=== PATIENT | male | born 1985 | race Caucasian/White ===

== ENCOUNTER 2024-12-28 11:11 | Emergency (ER) | payer OTHER, SELFPAY ==
[2024-12-28 12:03] VITALS: BP 112/79; PULSE 55; RESP 14; TEMP 36.4; O2SAT 100
--- OUTSIDE RECORDS SUMMARY | 2024-12-28 13:08 | XMS_ITS | Clinical Summary ---
Author Organization [facility] Address [address] [place] [id number] Care Team Providers Care Rigger Apprentice Name Role Phone [facility] Primary Care Provider [phone] Allergies No known active allergies Medications cetirizine (ZyrTEC) 10 mg tablet 07/18/2021 Active diclofenac sodium (VOLTAREN) 1 % gel 08/21/2021 Active emollient cream 07/18/2021 Act maury montelukast (SINGULAIR) 10 mg tablet 07/18/2021 Active Active Problems No known active problems Social History Tobacco Use Types Packs/Day Years Used Date Smoking Tobacco: Some Days Cigarettes Smokeless Tobacco: Never Personal Safety Answer Date Recorded Getting School Help Needed Not on file 08/10 Sex and Gender Information Value Date Recorded Sex Assigned at Not on file Legal Sex Male 12:44 PM [employer] Gender Identity Not on file Sexual Orientation Not on file Obstetrics History Last Filed Vital Signs Vital Sign Reading Time Taken Comments Blood Pressure 123/76 09/22/2021 2:58 PM CDT Pulse 61 09/22/2021 2:58 PM CDT Temperature 36.6 C (97.8 F) 09/22/2021 2:56 PM CDT Respiratory Rate 18 09/22/2021 2:56 PM CDT Oxygen Saturation 100% 09/22/2021 2:58 PM CDT Inhaled Oxygen Concentration - - Weight 66.7 kg (147 lb) 09/22/2021 2:56 PM CDT Height 176.7 cm (5' 9.57) 09/22/2021 2:56 PM CD T Body Mass Index 21.36 09/22/2021 2:56 PM CDT Plan of Treatment Health Maintenance Due Date Last Done Comments Depression Screening 1983 Hepatitis C Screening 1983 DTaP/Tdap/Td Vaccine (1 - Tdap) 1994 Varicella Vaccines (1 of 2 - 13+ 2-dose series) 1996 Hepatitis B Screening 2001 Regular Well Visit/Exam 18-64 2001 Pneumococcal vaccine <65 (1 of 2 - PCV) 2002 Covid-19 Vaccine (3 - 2023-2 5 season) 2024 10/14/2020, 08/19/2020 Influenza Vaccine (Season Ended) 2025 04/21/2020 HPV Vaccines Aged Out No longer eligi ble based on patient's age to complete [place] [id number] [employer] [place] [id number] Care Teams Rigger Apprentice Relationship Specialty Start Date End Date [facility] [address] [place] [address] PCP - General 07/25/21
--- OUTSIDE RECORDS SUMMARY | 2024-12-28 13:08 | XMS_ITS | Referral Summary ---
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
--- OUTSIDE RECORDS SUMMARY | 2024-12-28 13:09 | XMS_ITS | Patient Health Record ---
Author Organization [facility]ly [facility] ([address]) Address [address] [facility] [address] [place] [address] Care Team Providers Care Film Processing Utility Worker Name Role Phone Amandeep Portillo Primary Care Provider Unavailab Meggan Marcus Unavailable [phone] Allergies No Known Allergies Reason For Referral No Information Medications Medication SIG (Take, Route, Frequency, Duration) Notes Start Date End Date Status FAMOTIDINE 40 mg 1 tab(s) orally 30 min prior to allergy shots; Duration: 90 days Active EPIPEN 2-LUCIO 0.3 mg as directed intramuscularly once; Duration: 30 day(s) Active ZYRTEC 10 mg 1 tab(s) orally once a day; Duration: 90 days Active CETIRIZINE HYDROCHLORIDE 10 mg 1 tab(s) orally BID, PRN; Duration: 90 days Active FLONASE 0.05 mg/inh 2 spray(s) intranasally (avoid nasal septum) once a day; Duration: 90 days Active PEPCID 40 mg 1 tab(s) orally BID; Duration: 90 days Active SINGULAIR 10 mg 1 tab(s) orally once a day; Duration: 90 days Active Famotidine 40 MG 1 tab(s) orally 30 min prior to allergy shots; Duration: 90 days Active ZyrTEC Allergy 10 MG 1 tab(s) orally onc e a day; Duration: 90 days Active EpiPen 2-Lucio 0.3 MG/0.3ML as directed intramuscularly once; Duration: 30 day(s) Active Flonase Allergy Relief 50 MCG/ACT 2 spray(s) intranasally (avoid nasal septum) once a day; Duration: 90 days Active Cetirizine HCl 10 MG 1 tab(s) orally BID , PRN; Duration: 90 days Active Singulair 10 MG 1 tab(s) orally once a day; Duration: 90 days Active VANICREAM - 1 kori applied topically once a day; Duration: 30 days Active Pepcid 40 MG 1 tab(s) orally BID; Duration: 90 days Active VANICREAM MOISTURIZING CREAM N/A NECESSARY APPLY TO EXTERNAL SURFACES OFTEN NEEDED TO FACE, HANDS, FEET OR BODY FOR DAILY USE; Duration: 30 DAY(S) *Please review for potential replacement for e-prescription and drug interaction check* 07/11/2022 Active Vanicream - 1 kori applied topically once a day; Duration: 30 days Active Immunizations Vaccine Route Administration Date Status Comme nts Covid 19 (Pfizer) Unknown 08/19/2020 Administered Covid 19 (Pfizer) Unknown 10/14/2020 Administered Flucelvax Unknown 04/01/2019 Refused NOC Flucelevax Quadrivalent Unknown 04/21/2020 Administ ered Social History Tobacco Use: Social History Observation Description Date Details (start date - stop date) Current Smoker NA - NA Smoking Smart Form: Question Answer Notes Are you a: current smoker How often do you smoking Cigarettes? every day Problems Problem Type SNOMED Code ICD Code Onset Dates Problem Status W/U Status Risk Notes Problem Eruption of skin (926341405) Rash and other nonspecific skin eruption (R21) Active confirmed Problem Chronic allergic conjunctivitis (78597065) Other chronic allergic conjunctivitis (H10.45) Active confirmed Problem Allergic rhinitis caused by pollen (disorder) (46156240) Allergic rhinitis due to pollen (J30.1) Active confirmed Problem Allergic rhinitis (97209904) Other allergic rhinitis (J30.89) Active confirmed Problem Dizziness and giddiness (369962732) Dizziness and giddiness (R42) Active confirmed Problem Allergic rhinitis caused by pollen (disorder) (64525327) Allergic rhinitis due to pollen (J30.1) Active confirmed Problem Allergic rhinitis caused by animal hair and dander (927802936255224) Allergic rhinitis due to animal (cat) (dog) hair and dander (J30.81) Active confirmed Problem Allergic rhinitis (56462326) Other allergic rhinitis (J30.89) Active confirmed Problem Eruption of skin (553413961) Rash and other nonspecific skin eruption (R21) Active confirmed Problem Idiopathic urticaria (70198293) Idiopathic urticaria (L50.1) Active confirmed Problem Abnormal immunology finding (848390174) Other specified abnormal immunological findings in serum (R76.8) Active confirmed Problem 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 Problem Impacted cerumen (46226497) Impacted cerumen, right ear (H61.21) Active confirmed Plan Of Treatment Pending Test Test Name Order Date TRYPTASE 12/19/2020 Tryptase Copy Number 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
--- OUTSIDE RECORDS SUMMARY | 2024-12-28 13:09 | XMS_ITS | Continuity of Care Document ---
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 It does not include entries that were removed or entered in error. Problem Status Onset Date Problem Type Date of Resolution Comments Source Chronic low back pain Active Condition [facility] Chronic neck pain Active Condition [facility] Depression Active Condition [facility] Exposure to potentially hazardous substance (SCT [id number]) Active Condition Sep 24 4 Entered By: CAL MORE Comment: Entered automatically through [employer] Problem List documentation program [facility] Pain of bilateral hands Active Condition [facility] Pain of right wrist Active Condition [facility] Prepatellar bursitis Active Condition [facility] Tobacco use Active Condition [facility] Vitamin D deficiency Active Condition [facility] Vertebrogenic low back pain Active Condition [facility] 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 Condition [facility] Encounter for preprocedural laboratory examination Active Condition [facility] Muscle spasm of back Active Condition [facility] Other spondylosis, cervical region Active Condition [facility] Cervicalgia Active Condition [facility] Segmental and somatic dysfunction of cervical region Active Condition [facility] Segmental and somatic dysfunction of thoracic region Active Condition [facility] Segmental and somatic dysfunction of lumbar region Active Condition [facility] Low back pain Active Condition [facility] Urticaria, unspecified Active Condition [facility] NORMAL EXAMINATION Inactive Condition [facility] INHIBITED SEXUAL EXCITEMENT Active Condition [facility] VITREOUS FLOATERS Active Condition [facility] VARICOSE VEINS Active Condition [facility] visit 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: 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 Inactive Condition [facility] PREMATURE EJACULATION Active Condition [facility] drowsiness [Sx] Active Condition [facility] visit for: issue medical certificate Inactive Condition [facility] CERVICAL SPONDYLOSIS Active Condition [facility] tingling (paresthesia) Active Condition [facility] 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 [facility] FACET SYNDROME Active Condition [facility] SEGMENTAL DYSFUNCTION OF CERVICAL REGION Active Condition [facility] SEGMENTAL DYSFUNCTION OF THORACIC REGION Active Condition [facility]D CERVICALGIA Active Condition DoD ACUTE LYMPHADENITIS INGUINAL Inactive Condition [facility] CELLULITIS OF THE LEFT BUTTOCK Inactive Condition [facility] visit for: refer patient without exam or treatment Inactive Condition [facility] Inquiry And Counseling: Parent - Child Problem Inactive Condition [facility] visit for: administrative purpose Inactive Condition [facility] Inquiry And Counseling: Concern About Behavior Of Child Inactive Condition DoD BACKACHE Active Condition [facility] SKIN ABSCESS OF THE RIGHT THIGH Inactive Condition [facility] Administrative Evaluation Services Inactive Condition DoD TONGUE PAPILLAE HYPERTROPHY Active Condition [facility] FURUNCULOSIS Inactive Condition DoD NONALLOPATHIC LESIONS THORACIC Active Condition DoD BURSITIS PREPATELLAR SEPTIC Active Condition Do[facility] SKIN ABSCESS Inactive Condition Do[facility] Laboratory Studies Inactive Condition DoD neck stiffness Inactive Condition DoD testicular pain Inactive Condition DoD ANEMIA Active Condition DoD Patient Education - Medication Inactive Condition DoD NICOTINE DEPENDENCE Active Condition DoD EPIDERMAL INCLUSION CYST Inactive Condition DoD feeling tired or poorly Inactive Condition DoD CELLULITIS Inactive Condition [facility] visit for: issue repeat prescription Inactive Condition DoD Aftercare Following Surgery Of Genitourinary System Inactive Condition [facility] visit for: sterilization Inactive Condition [facility] Inquiry And Counseling: Contraceptive Practices Inactive Condition [facility] visit for: vasectomy status Inactive Condition Counseled onalternatives as he is young, then also as above on procedure. If he decised to go ahead with procedure after this counseling, I feel comfortable performing it. He will need to call back soon to schedule. If I am no longer available for procedures by the time he calls back, we may check with other providers in this clinic, or refer to urology DoD visit for: screening exam lipoid disorders Inactive Condition see [facility] note DoD visit for: services physical Inactive Condition Records reviewed. No DLCs and is Fully WWQ DoD visit for: administrative purpose Inactive Condition appt as noted below DoD SUBUNGUAL HEMATOMA LEFT HAND INDEX FINGER Inactive Condition Healing normally, no sign of infection. Self-care, callback criteria reviewed. DoD RHINITIS Inactive Condition Sinuses NT TP, nasal mucosa red/swollen, no polyps noted. ENT exam o/w (-). Avoid typical triggers, call/RTC prn not gradually improved. DoD ACNE Inactive Condition Type I acn e at face, no cysts/nodules/sc arring. Avoid xs picking/scrubbin g, call/RTC prn not gradually improved over next few mos. DoD visit for: issue repeat prescription for medication Inactive Condition appt per dr Castano [facility] /RSJANICE MARES [id number]@1320 ROUT/20 PENDINGArrive 15 min early DoD CARBUNCLE ON THE LEFT FOREARM Inactive Condition Refer above for details. DoD CARBUNCLE ON THE RIGHT KNEE Inactive Condition Presumptive MRS A infection. Adjust antibiotic dose as directed and start Motrin prn pain. Recommend qid warm compresses. Monitor and call/rtc if persists/worse. Keep clean and dry. May require I&D if persists. If MRSA +, will start decolonization 5 days after wounds heal w/ Bactroban instilled in nostril bid f 5 days and daily Hibiclens scrub. Wash clothes and sheets daily and wipe down surfaces in common areas. (H) [phone] DoD OPEN WOUND Inactive Condition persisten t open wound left forearm but no palpable abscess or fluctuance; lesion to right knee that also has no palpable fluctuance but suspect may develop into cutaneous abscess; unsure why pt has persistent open wound but will cover with septra ds x 10d; pt already has pcp f/u in 2d at which point wound check can occur and persistent allergy issues can be addressed; rx septra ds, ibuprofen, and tylenol DoD Color Discrimination Difficulty Green Color Defect Bilateral Inactive Condition mild red-green color deficiency DoD Diagnosis: ICD-10-CM Z63.0 Problems in relationship with spouse or partner Active Diagnosis [facility] Diagnosis: ICD-10-CM M25.531 Pain in right wrist Active Diagnosis [facility] Diagnosis: ICD-10-CM M54.2 Cervicalgia Active Diagnosis [facility] Diagnosis: ICD-10-CM M54.50 Low back pain, unspecified Active Diagnosis [facility] Diagnosis: ICD-10-CM F32.A Depression, unspecified Active Diagnosis [facility] Diagnosis: ICD-10-CM F43.20 Adjustment disorder, unspecified Active Diagnosis [facility] Diagnosis: ICD-10-CM F43.21 Adjustment disorder with depressed mood Active Diagnosis [facility] Diagnosis: ICD-10-CM M25.511 Pain in right shoulder Active Diagnosis [facility] Diagnosis: ICD-10-CM F43.23 Adjustment disorder with mixed anxiety and depressed mood Active Diagnosis [facility] Diagnosis: ICD-10-CM F33.0 Major depressive disorder, recurrent, mild Active Diagnosis [facility] Diagnosis: ICD-10-CM Z71.89 Other specified counseling Active Diagnosis [facility] Medications Combined list of outpatient medications from Department of Defense and Veterans Affairs facilities.Medications provided include 1) outpatient medications from the last 15 months, and 2) patient-reported medications. Medication Details Route Status Patient Instructions Prescription Expires Prescription Number Last Dispense Date Ordering Provider Order Date Order Qty Source BUPROPION (WELLBUTRIN XL) 24HR TAB,SA (EXTENDED RELEASE) TAKE 150MG BY MOUTH ONCE A DAY ORAL ACTIVE BRIAN,Z AHIDA 2023 [facility] buPROPion 150 mg/24 hours (XL) oral tablet, extended release See Instruct ions, TAKE 1 TABLET BY MOUTH EVERY 24 HOURS, # 90 tab(s), 0 total refill(s ), [facility], [id number] Ordered 2024 90.0 [facility]55C[facility] buPROPion 150 mg/24 hours (XL) oral tablet, extended release 1 tab(s), Oral, every 24 hr, # 90 tab(s), 3 total refill(s ), [facility], Pharmacy : [id number] Oral (given by mouth) Complet ed 08/04/20242024 90.0 0055C[facility] buPROPion 150 mg/24 hours (XL) oral tablet, extended release See Instruct ions, TAKE 1 TABLET BY MOUTH EVERY 24 HOURS, # 90 tab(s), 0 total refill(s ), [facility], Pharmacy : [facility] #[id number] Complet ed 11/05/20242024 90.0 0055C[facility] buPROPion XL 150 mg/24 hour tablet 150 mg, See dose instruct ions in comments , # 90 EA, 1 total refill(s ), Acute Complet ed 08/28/2023 3 2023 90.0 Ambulat ory Pharmac y CHOLECALCIF SOPHIA 50MCG (2,000UNIT) TAB TAKE ONE TABLET BY MOUTH ONCE A DAY FOR VITAMIN D DEFICIEN CY ORAL ACTIVE 07/21/2025 [id number] BRIAN,Z AHIDA 2024 100 [facility] ERGOCALCIFE ROL 1,250MCG (50,000UNIT ) CAP TAKE ONE CAPSULE BY MOUTH EVERY WEEK FOR VITAMIN D DEFICIEN CY ORAL 10/19/2024 [id number] 5 BRIAN,Z AHIDA 2024 12 [facility] escitalopra m 20 mg oral tablet TAKE ONE TABLET BY MOUTH DAILY, # 90 EA, 1 total refill(s ), Acute Complet ed 08/28/2023 3 2023 90.0 Ambulat ory Pharmac y meloxicam 15 mg oral tablet 1 tab(s), Oral, Daily, # 30 tab(s), 0 total refill(s ), [facility], Pharmacy : [facility] Oral (given by mouth) Complet ed 02/03/20242023 30.0 0055C-[facility] Sh[facility] meloxicam 15 mg oral tablet See Instruct ions, TAKE 1 TABLET BY MOUTH DAILY, # 30 tab(s), 0 total refill(s ), [facility], Pharmacy : [facility] #[id number] Complet ed 03/09/20242023 30.0 0055C[facility] meloxicam 15 mg oral tablet See Instruct ions, TAKE 1 TABLET BY MOUTH DAILY, # 30 tab(s), 0 total refill(s ), [facility], Pharmacy : [facility] #[id number] Ordered 2023 30.0 0055C-3 [facility] Shiva meloxicam 15 mg oral tablet See Instruct ions, TAKE 1 TABLET BY MOUTH DAILY, # 30 tab(s), 0 total refill(s ), [facility], Pharmacy : [facility] #[id number] Complet ed 05/11/20242023 30.0 0055C-[facility] meloxicam 15 mg oral tablet 1 tab(s), Oral, Daily, # 30 tab(s), 0 total refill(s ), [id number] Oral (given by mouth) Discont inued 12/26/20232023 30.0 [facility]55C[facility] MELOXICAM 15MG TAB TAKE ONE TABLET BY MOUTH ONCE A DAY FOR PAIN WITH FOOD ORAL ACTIVE 10/30/2025 [id number] 5 BRIAN,Z AHIDA 2024 30 [facility] Allergies, Adverse Reactions, Alerts Combined list of allergies from Department of Defense and Veterans Affairs facilities. It does not include entries that were removed or entered in error. Substance Category Reaction Severity Reaction type Status Date Reported Comments Source No Known Allergies Drug allergy (disorder) active 08/31/2016 [place] Immunizations Combined list of available immunizations from the Department of Defense and Veterans Affairs facilities. Immunization Series Date Given Administered By Site Reaction Lot Number CVX Code [facility] Status Comments Source COVID-19 (PFIZER), MRNA, LNP-S, PF, TACOS-SUCROSE, 30 MCG/0.3 ML (AGES 12+ YEARS) 2024 MEENU ASH LEFT DELTO ID [id number] complet ed [facility] AT [facility] INFLUENZA, SPLIT VIRUS, TRIVALENT, PF 2024 MIHIRMEENU LEFT DELTO ID [id number] complet ed [facility]MIN[facility]E [facility] AT [facility] influenza, injectable, quadrivalent- pf 2020 [id number] 150 GlaxoSmithKli ne complet ed influenza , injectabl e, quadrival ent-pf 03/13/21 Given Ambulat ory Pharmac y Influenza, injectable, quadrivalent, preservative free 9 2020 [id number] 150 SmithKline (SKB) complet ed Influenza , injectabl e, quadrival ent, preservat maury free [facility] COVID Vaccine Pfizer 2020 [id number] PFIZER complet ed COVID Vaccine Pfizer 10/14/20 Given Ambulat ory Pharmac y SARS-COV-2 (COVID-19) vaccine, mRNA, spike protein, LNP, preservative free, 30 mcg/0.3mL dose 2 05/07/ 2021 [id number] Pfizer, Inc (PFR) complet ed SARS-COV- 2 (COVID-19 ) vaccine, mRNA, spike protein, LNP, preservat maury free, 30 mcg/0.3mL dose DoD COVID Vaccine Pfizer 2020 [id number] PFIZER complet ed COVID Vaccine [facility] 08/19/20 Given Ambulat ory Pharmac y SARS-COV-2 (COVID-19) vaccine, mRNA, spike protein, LNP, preservative free, 30 mcg/0.3mL dose 1 2020 [id number] 208 Pfizer, Inc (PFR) complet ed SARS-COV- 2 (COVID-19 ) vaccine, mRNA, spike protein, LNP, preservat maury free, 30 mcg/0.3mL dose DoD influenza, injectable, quadrivalent- pf 2019 [id number] 150 Seqirus complet ed influenza , injectabl e, quadrival ent-pf 04/29/20 Given Ambulat ory Pharmac y Influenza, injectable, quadrivalent, preservative free 1 2019 [id number] 082 150 Seqirus (SEQ) complet ed Influenza , injectabl e, quadrival ent, preservat maury free DoD influenza, injectable, quadrivalent- pf 2018 [id number] 150 Seqirus complet ed influenza , injectabl e, quadrival ent-pf 05/22/19 Given Ambulat ory Pharmac y Influenza, injectable, quadrivalent, preservative free 0 2018 [id number] 150 Seqirus (SEQ) complet ed Influenza , injectabl e, quadrival ent, preservat maury free DoD influenza, injectable, quadrivalent- pf 2017 [id number] 150 GlaxoSmithKli ne complet ed influenza , injectabl e, quadrival ent-pf 03/31/18 Given Ambulat ory Pharmac y Influenza, injectable, quadrivalent, preservative free 16 2017 [id number] 150 [employer] (SKB) complet ed Influenza , injectabl e, quadrival ent, preservat maury free [facility] influenza virus vaccine, inactivated 2016 [id number] Seqirus complet ed influenza virus vaccine, inactivat ed 03/13/17 Given Ambulat ory Pharmac y Influenza, injectable, Madin Linden Canine Kidney, quadrivalent with preservative 15 2016 [id number] 186 Seqirus (SEQ) comple t ed Influenza , injectabl e, Madin Linden Canine Kidney, quadrival ent with preservat maury DoD influenza, injectable, quadrivalent- pf 2015 [id number] 150 GlaxoSmithKli ne complet ed influenza , injectabl e, quadrival ent-pf 04/13/16 Given Ambulat ory Pharmac y Influenza, injectable, quadrivalent, preservative free 14 2015 [id number] 150 SmithKline (SKB) complet ed Influenza , injectabl e, quadrival ent, preservat maury free DoD Swazi Encephalitis IM 2015 [id number] 134 Valneva complet ed Swazi Encephali tis IM 10/04/15 Given Ambulat ory Pharmac y Swazi Encephalitis vaccine for intramuscular administratio n 3 2015 [id number] 134 Intercell Biomedical (INT) complet ed Swazi Encephali tis vaccine for intramusc ular administr ation DoD influenza, live, intranasal,qu adrivalent 2014 [id number] 149 [employer] Inc comple t ed influenza , live, intranasa l,quadriv alent 03/16/15 Given Ambulat ory Pharmac y influenza, live, intranasal, quadrivalent 13 2014 [id number] 149 Factor.io, Inc. (MED) complet ed influenza , live, intranasa l, quadrival ent DoD Swazi Encephalitis IM 2014 [id number] 134 Valneva complet ed Swazi Encephali tis IM 08/25/14 Given Ambulat ory Pharmac y Swazi Encephalitis vaccine for intramuscular administratio n 2 2014 [id number] 6E 134 [employer] (INT) complet ed Swazi Encephali tis vaccine for intramusc ular administr ation DoD Swazi Encephalitis IM 2014 [id number] 4E 134 Valneva complet ed Swazi Encephali tis IM 07/27/14 Given Ambulat ory Pharmac y Swazi Encephalitis vaccine for intramuscular administratio n 1 2014 [id number] 4E 134 [employer] (INT) complet ed Swazi Encephali tis vaccine for intramusc ular administr ation DoD influenza, live, intranasal,qu adrivalent 2013 [id number] 149 Medimmune Inc comple t ed influenza , live, intranasa l,quadriv alent 04/14/14 Given Ambulat ory Pharmac y influenza, live, intranasal, quadrivalent 12 2013 [id number] 149 Factor.io, Inc. (MED) complet ed influenza , live, intranasa l, quadrival ent DoD vaccinia (smallpox) vaccine 2013 VV04-00 3A 75 Med fusion [facility] complet ed vaccinia (smallpox ) vaccine 10/13/13 Given Ambulat ory Pharmac y vaccinia (smallpox) vaccine 1 2013 VV04-00 3A 75 [facility] complet ed vaccinia (smallpox ) vaccine DoD anthrax vaccine 2013 [id number] 24 Emergent Biosolutions complet ed anthrax vaccine 10/09/13 Given Ambulat ory Pharmac y anthrax vaccine 3 2013 [id number] 24 [employer] [place] (MIP) complet ed anthrax vaccine DoD anthrax vaccine 2012 [id number] 24 [employer] complet ed anthrax vaccine 03/27/13 Given Ambulat ory Pharmac y anthrax vaccine 2 2012 [id number] 24 [employer] Mara (MIP) complet ed anthrax vaccine DoD anthrax vaccine 2012 [id number] 24 [employer] complet ed anthrax vaccine 02/26/13 Given Ambulat ory Pharmac y influenza, live, intranasal,qu adrivalent 2012 [id number] 149 TAPQUADune Inc comple t ed influenza , live, intranasa l,quadriv alent 02/26/13 Given Ambulat ory Pharmac y typhoid Vi capsular polysaccharid e vac 2012 [id number] 101 sanofi pasteur complet ed typhoid Vi capsular polysacch aride vac 02/26/13 Given Ambulat ory Pharmac y anthrax vaccine 1 2012 [id number] 24 [employer] Mara (MIP) complet ed anthrax vaccine DoD typhoid Vi capsular polysaccharid e vaccine 1 2012 [id number] 101 Sanofi Pasteur (PMC) complet ed typhoid Vi capsular polysacch aride vaccine DoD influenza, live, intranasal, quadrivalent 11 2012 [id number] 149 MedImmune, Inc. (MED) complet ed influenza , live, intranasa l, quadrival ent DoD tetanus, diphtheria, acellular pertu is 2011 [id number] 115 sanofi [facility] complet ed tetanus, diphtheri a, acellular pertussis 02/15/12 Given Ambulat ory Pharmac y influenza virus vaccine, live 2011 [id number] 111 [facility] t ed influenza virus vaccine, live 02/15/12 Given Ambulat ory Pharmac y influenza virus vaccine, live, attenuated, for intranasal use 10 2011 [id number] 111 Factor.io, Inc. (MED) complet ed influenza virus vaccine, live, attenuate d, for intranasa l use DoD tetanus toxoid, reduced diphtheria toxoid, and acellular pertu is vaccine, adsorbed 0 2011 [id number] 115 [facility] ([facility]) complet ed tetanus toxoid, reduced diphtheri a toxoid, and acellular pertussis vaccine, adsorbed DoD influenza virus vaccine, live 2010 [id number] 111 [facility] t ed influenza virus vaccine, live 02/26/11 Given Ambulat ory Pharmac y influenza virus vaccine, live, attenuated, for intranasal use 2010 [id number] 111 Factor.io, Inc. (MED) complet ed influenza virus vaccine, live, attenuate d, for intranasa l use DoD Novel influenza-H1N 1-09, injectable 2008 [id number] 127 Novartis Pharmaceutica complet ed Novel influenza -C8K2-18, injectabl e 05/20/09 Given Ambulat ory Pharmac y Novel influenza-H1N 1-09, injectable 1 2008 [id number] [id number] 127 Novartis Pharmaceutica Edi. (NOV) complet ed Novel influenza -S1I1-65, injectabl e DoD influenza virus vaccine, live 2008 [id number] 111 [facility] t ed influenza virus vaccine, live 04/08/09 Given Ambulat ory Pharmac y influenza virus vaccine, live, attenuated, for intranasal use 1 2008 [id number] 111 Factor.io, Inc. (MED) complet ed influenza virus vaccine, live, attenuate d, for intranasa l use DoD influenza virus vaccine, live 2007 [id number] 111 [facility] comple t ed influenza virus vaccine, live 05/17/08 Given Ambulat ory Pharmac y influenza virus vaccine, live, attenuated, for intranasal use 1 2007 [id number] 111 Factor.io, Inc. (MED) complet ed influenza virus vaccine, live, attenuate d, for intranasa l use DoD influenza virus vaccine, live 2006 [id number] 111 [employer] comple t ed influenza virus vaccine, live 04/01/07 Given Ambulat ory Pharmac y influenza virus vaccine, live, attenuated, for intranasal use 1 2006 [id number] 111 Factor.io, Inc. (MED) complet ed influenza virus vaccine, live, attenuate d, for intranasa l use DoD influenza virus vaccine,split 2005 [id number] 15 sanofi pasteur complet ed influenza virus vaccine,s plit 05/15/06 Given Ambulat ory Pharmac y influenza virus vaccine, split virus (incl. purified surface antigen)-reti red CODE 1 2005 [id number] 15 Sanofi Pasteur ([facility]) complet ed influenza virus vaccine, split virus (incl. purified surface antigen)- retired CODE [facility] tuberculin purified protein derivative 2004 zzLef t Arm [id number] 96 Unknown complet ed Patient Tolerance : Negative Ambulat ory Pharmac y influenza virus vaccine,split 2004 [id number] 15 sanofi pasteur complet ed influenza virus vaccine,s plit 04/23/05 Given Ambulat ory Pharmac y influenza virus vaccine, split virus (incl. purified surface antigen)-reti red CODE 1 2004 [id number] 15 Sanofi Pasteur ([facility]) complet ed influenza virus vaccine, split virus (incl. purified surface antigen)- retired CODE [facility] tuberculin skin test; purified protein derivative solution, intradermal 1 2004 Unknown, Provider [id number] 96 Other (OTH) complet ed tuberculi n skin test; purified protein derivativ e solution, intraderm al DoD influenza virus vaccine,split 2003 [id number] 15 sanofi pasteur complet ed influenza virus vaccine,s plit 05/10/04 Given Ambulat ory Pharmac y influenza virus vaccine, split virus (incl. purified surface antigen)-reti red CODE 0 2003 [id number] 15 Sanofi Pasteur ([facility]) complet ed influenza virus vaccine, split virus (incl. purified surface antigen)- retired CODE [facility] tuberculin purified protein derivative 2003 zzLef t Arm [id number] 96 [facility] complet ed Patient Tolerance : Negative Ambulat ory Pharmac y tuberculin skin test; purified protein derivative solution, intradermal 1 2003 Unknown, Provider [id number] [facility] complet ed tuberculi n skin test; purified protein derivativ e solution, intraderm al DoD influenza virus vaccine, whole virus 2002 [id number] 16 Novartis Pharmaceutica ls complet ed influenza virus vaccine, whole virus 05/17/03 Given Ambulat ory Pharmac y influenza virus vaccine, whole virus 0 2002 [id number] 16 [employer] Pharm[employer] ls (PWJ) complet ed influenza virus vaccine, whole virus DoD hepatitis A-hepatitis B vaccine 2002 [id number] 4 104 GlaxoSmithKli ne complet ed hepatitis A-hepatit is B vaccine 08/26/02 Given Ambulat ory Pharmac y hepatitis A and hepatitis B vaccine 3 2002 [id number] 4 104 SmithKline (SKB) complet ed hepatitis A and hepatitis B vaccine DoD influenza virus vaccine, whole virus 2001 [id number] 16 sanofi pasteur complet ed influenza virus vaccine, whole virus 03/12/02 Given Ambulat ory Pharmac y influenza virus vaccine, whole virus 0 2001 [id number] 16 Sanofi Pasteur ([facility]) complet ed influenza virus vaccine, whole virus DoD hepatitis A-hepatitis B vaccine 2001 [id number] 6 104 GlaxoSmithKli ne complet ed hepatitis A-hepatit is B vaccine 03/07/02 Given Ambulat ory Pharmac y hepatitis A and hepatitis B vaccine 2 2001 [id number] 6 104 [employer] (SKB) complet ed hepatitis A and hepatitis B vaccine DoD hepatitis A-hepatitis B vaccine 2001 [id number] 6 104 GlaxoSmithK[employer] ne complet ed hepatitis A-hepatit is B vaccine 02/06/02 Given Ambulat ory Pharmac y measles, mumps and rubella virus vaccine 0 2001 03 () Not Given measles, mumps and rubella virus vaccine DoD varicella virus vaccine 1 2001 21 () Not Given varicella virus vaccine DoD hepatitis A and hepatitis B vaccine 1 2001 [id number] 6 104 [employer] (SKB) complet ed hepatitis A and hepatitis B vaccine DoD tuberculin purified protein derivative 2001 zzLef t Arm [id number] 96 sanofi pasteur complet ed Patient Tolerance : Negative Ambulat ory Pharmac y meningococcal polysaccharid e (MPSV4) 2001 [id number] sanofi pasteur complet ed meningoco ccal polysacch aride (MPSV4) 01/30/02 Given Ambulat ory Pharmac y tetanus-dipht h toxoids (Td) adult/adol 2001 [id number] 09 sanofi pasteur complet ed tetanus-d iphth toxoids (Td) adult/ado l 01/30/02 Given Ambulat ory Pharmac y poliovirus vaccine, inactivated 2001 [id number] 10 sanofi pasteur complet ed polioviru s vaccine, inactivat ed 01/30/02 Given Ambulat ory Pharmac y tetanus and diphtheria toxoids, adsorbed, preservative free, for adult use (2 Lf of tetanus toxoid and 2 Lf of diphtheria toxoid) 0 2001 [id number] 09 Sanofi Pasteur (PMC) complet ed tetanus and diphtheri a toxoids, adsorbed, preservat maury free, for adult use (2 Lf of tetanus toxoid and 2 Lf of diphtheri a toxoid) DoD poliovirus vaccine, inactivated 0 2001 [id number] 10 Sanofi Pasteur (PMC) complet ed polioviru s vaccine, inactivat ed DoD meningococcal polysaccharid e vaccine (MPSV4) 0 2001 [id number] 32 Sanofi Pasteur (PMC) complet ed meningoco ccal polysacch aride vaccine (MPSV4) DoD tuberculin skin test; purified protein derivative solution, intradermal 1 2001 Unknown, Provider [id number] 96 Sanofi Pasteur (PMC) complet ed tuberculi n skin test; purified protein derivativ e solution, intraderm al DoD Results Combined list of recent chemistry, hematology and other laboratory results from Department of Defense and [facility], ranging from 15 months to all on record, depending upon the facility. Order Name Results Value Reference Range Date Interpretation Specimen Comments Source URINALYSI S (STL-PB) COLOR OF URINE Light-Ye llow 07/20 Specimen Type: URINE No comment entered. Ordering Provider: BEV TORRES Report Released Date/Time: Jul 20, 2024 03:42 PM Reporting Lab: [facility] [place] [address] Performing Lab: [facility] DIVISION URINALYSI S (STL-PB) BILIRUBIN. TOTAL [PRESENCE] IN URINE BY TEST STRIP Negative mg/dL 07/20 Specimen Type: URINE No comment entered. Ordering Provider: BEV TORRES Report Released Date/Time: Jul 20, 2024 03:42 PM Reporting Lab: [facility] [place] [address] Performing Lab: [facility] DIVISION URINALYSI S (STL-PB) PH OF URINE BY TEST STRIP 7.0 5.0 - 8.0 07/20 Specimen Type: URINE No comment entered. Ordering Provider: BEV TORRES Report Released Date/Time: Jul 20, 2024 03:42 PM Reporting Lab: [facility] [place] [address] Performing Lab: [facility] DIVISION URINALYSI S (STL-PB) APPEARANCE OF URINE Clear 07/20 Specimen Type: URINE No comment entered. Ordering Provider: BEV TORERS Report Released Date/Time: Jul 20, 2024 03:42 PM Reporting Lab: [facility] [place] [address] Performing Lab: [facility] DIVISION URINALYSI S (STL-PB) NITRITE [PRESENCE] IN URINE BY TEST STRIP Negative mg/dL 07/20 Specimen Type: URINE No comment entered. Ordering Provider: BEV TORRES Report Released Date/Time: Jul 20, 2024 03:42 PM Reporting Lab: [facility] [place] [address] Performing Lab: [facility] DIVISION URINALYSI S (STL-PB) GLUCOSE [MASS/VOLU ME] IN URINE BY TEST STRIP Normalmg /dL 07/20 Specimen Type: URINE No comment entered. Ordering Provider: BEV TORRES Report Released Date/Time: Jul 20, 2024 03:42 PM Reporting Lab: [facility] [place] [address] Performing Lab: [facility] DIVISION URINALYSI S (STL-PB) PROTEIN [MASS/VOLU ME] IN URINE BY TEST STRIP 10 mg/dL 07/20 H Specimen Type: URINE No comment entered. Ordering Provider: BEV TORRES Report Released Date/Time: Jul 20, 2024 03:42 PM Reporting Lab: [facility] [place] [address] Performing Lab: [facility] DIVISION URINALYSI S (STL-PB) URN.UROBIL INOGEN Normalmg /dL 07/20 Specimen Type: URINE No comment entered. Ordering Provider: BEV TORRES Report Released Date/Time: Jul 20, 2024 03:42 PM Reporting Lab: [facility] [place] [address] Performing Lab: [facility] DIVISION URINALYSI S (STL-PB) HEMOGLOBIN [MASS/VOLU ME] IN URINE BY TEST STRIP Negative mg/dL 07/20 Specimen Type: URINE No comment entered. Ordering Provider: BEV TORRES Report Released Date/Time: Jul 20, 2024 03:42 PM Reporting Lab: [facility] [place] [address] Performing Lab: [facility] DIVISION URINALYSI S (STL-PB) KETONES [MASS/VOLU ME] IN URINE BY TEST STRIP Negative mg/dL 07/20 Specimen Type: URINE No comment entered. Ordering Provider: BEV TORRES Report Released Date/Time: Jul 20, 2024 03:42 PM Reporting Lab: [facility] [place] [address] Performing Lab: [facility] DIVISION URINALYSI S (STL-PB) URN.LEUK.E ST. Negative mg/dL 07/20 Specimen Type: URINE No comment entered. Ordering Provider: BEV TORRES Report Released Date/Time: Jul 20, 2024 03:42 PM Reporting Lab: [facility] [place] [address] Performing Lab: [facility] DIVISION URINALYSI S (STL-PB) SPECIFIC GRAVITY OF URINE 1.023 07/20 Specimen Type: URINE No comment entered. Ordering Provider: BEV TORRES Report Released Date/Time: Jul 20, 2024 03:42 PM Reporting Lab: [facility] [place] [address] Performing Lab: [facility] DIVISION LIPID PANEL (STL) CHOLESTERO L [MASS/VOLU ME] IN SERUM OR PLASMA 219 mg/dL 0 - 200 07/20 H Specimen Type: PLASMA Comment: No hemolysis noted. Ordering Provider: BEV TORRES Report Released Date/Time: Jul 20, 2024 03:42 PM Reporting Lab: [facility] [place] [address] Performing Lab: [facility] LIPID PANEL (STL) TRIGLYCERI DE [MASS/VOLU ME] IN SERUM OR PLASMA 66 mg/dL 0 - 150 07/20 Specimen Type: PLASMA Comment: No hemolysis noted. Ordering Provider: BEV TORRES Report Released Date/Time: Jul 20, 2024 03:42 PM Reporting Lab: [facility] [place] [address] Performing Lab: [facility] LIPID PANEL (STL) CHOLESTERO L IN LDL [MASS/VOLU ME] IN SERUM OR PLASMA BY TRAM Soriano 137 mg/dL 07/20 Specimen Type: PLASMA Comment: No hemolysis noted. Ordering Provider: BEV TORRES Report Released Date/Time: Jul 20, 2024 03:42 PM Reporting Lab: [facility] [place] [address] Performing Lab: [facility] LIPID PANEL (STL) CHOLESTERO L IN HDL [MASS/VOLU ME] IN SERUM OR PLASMA 69 mg/dL 40 07/20 Specimen Type: PLASMA Comment: No hemolysis noted. Ordering Provider: BEV TORRES Report Released Date/Time: Jul 20, 2024 03:42 PM Reporting Lab: [facility] [place] [address] Performing Lab: [facility] [place] [id number] DIVISION COMPREHEN SIVE METABOLIC PANEL CREATININE [MASS/VOLU ME] IN SERUM OR PLASMA 0.83 mg/dL 0.70 - 1.30 07/20 Specimen Type: PLASMA Comment: No hemolysis noted. Ordering Provider: BEV TORRES Report Released Date/Time: Jul 20, 2024 03:42 PM Reporting Lab: [facility] [place] [address] Performing Lab: [facility] DIVISION COMPREHEN SIVE METABOLIC PANEL UREA NITROGEN [MASS/VOLU ME] IN SERUM OR PLASMA 13.7 mg/dL 9.0 - 25.0 07/20 Specimen Type: PLASMA Comment: No hemolysis noted. Ordering Provider: BEV TORRES Report Released Date/Time: Jul 20, 2024 03:42 PM Reporting Lab: [facility] [place] [address] Performing Lab: [facility] COMPREHEN SIVE METABOLIC PANEL GLUCOSE [MASS/VOLU ME] IN SERUM OR PLASMA 88 mg/dL 72 - 99 07/20 Specimen Type: PLASMA Comment: No hemolysis noted. Ordering Provider: BEV TORRES Report Released Date/Time: Jul 20, 2024 03:42 PM Reporting Lab: [facility] [place] [address] Performing Lab: [facility] COMPREHEN SIVE METABOLIC PANEL SODIUM [MOLES/VOL UME] IN SERUM OR PLASMA 141 meq/L 136 - 145 07/20 Specimen Type: PLASMA Comment: No hemolysis noted. Ordering Provider: BEV TORRES Report Released Date/Time: Jul 20, 2024 03:42 PM Reporting Lab: [facility] [place] [address] Performing Lab: [facility] DIVISION COMPREHEN SIVE METABOLIC PANEL POTASSIUM [MOLES/VOL UME] IN SERUM OR PLASMA 3.9 meq/L 3.5 - 5.0 07/20 Specimen Type: PLASMA Comment: No hemolysis noted. Ordering Provider: BEV TORRES Report Released Date/Time: Jul 20, 2024 03:42 PM Reporting Lab: [facility] [place] [address] Performing Lab: [facility] DIVISION COMPREHEN SIVE METABOLIC PANEL CHLORIDE [MOLES/VOL UME] IN SERUM OR PLASMA 106 meq/L 98 - 107 07/20 Specimen Type: PLASMA Comment: No hemolysis noted. Ordering Provider: BEV TORRES Report Released Date/Time: Jul 20, 2024 03:42 PM Reporting Lab: [facility] [place] [address] Performing Lab: [facility] DIVISION COMPREHEN SIVE METABOLIC PANEL CARBON DIOXIDE, TOTAL [MOLES/VOL UME] IN SERUM OR PLASMA 27 meq/L 22 - 31 07/20 Specimen Type: PLASMA Comment: No hemolysis noted. Ordering Provider: BEV TORRES Report Released Date/Time: Jul 20, 2024 03:42 PM Reporting Lab: [facility] [place] [address] Performing Lab: [facility] DIVISION COMPREHEN SIVE METABOLIC PANEL CALCIUM [MASS/VOLU ME] IN SERUM OR PLASMA 9.7 mg/dL 8.4 - 10.4 07/20 Specimen Type: PLASMA Comment: No hemolysis noted. Ordering Provider: BEV TORRES Report Released Date/Time: Jul 20, 2024 03:42 PM Reporting Lab: [facility] [place] [address] Performing Lab: [facility] DIVISION COMPREHEN SIVE METABOLIC PANEL PROTEIN [MASS/VOLU ME] IN SERUM OR PLASMA 7.4 g/dL 6.0 - 8.6 07/20 Specimen Type: PLASMA Comment: No hemolysis noted. Ordering Provider: BEV TORRES Report Released Date/Time: Jul 20, 2024 03:42 PM Reporting Lab: [facility] [place] [address] Performing Lab: [facility] DIVISION COMPREHEN SIVE METABOLIC PANEL ALBUMIN [MASS/VOLU ME] IN SERUM OR PLASMA 4.9 g/dL 3.4 - 5.0 07/20 Specimen Type: PLASMA Comment: No hemolysis noted. Ordering Provider: BEV TORRES Report Released Date/Time: Jul 20, 2024 03:42 PM Reporting Lab: [facility] [place] [address] Performing Lab: [facility] DIVISION COMPREHEN SIVE METABOLIC PANEL BILIRUBIN. TOTAL [MASS/VOLU ME] IN SERUM OR PLASMA 0.3 mg/dL 0.2 - 1.2 07/20 Specimen Type: PLASMA Comment: No hemolysis noted. Ordering Provider: BEV TORRES Report Released Date/Time: Jul 20, 2024 03:42 PM Reporting Lab: [facility] [place] [address] Performing Lab: [facility] DIVISION COMPREHEN SIVE METABOLIC PANEL ALKALINE PHOSPHATAS E [ENZYMATIC ACTIVITY/V OLUME] IN SERUM OR PLASMA 48 U/L 40 - 150 07/20 Specimen Type: PLASMA Comment: No hemolysis noted. Ordering Provider: BEV TORRES Report Released Date/Time: Jul 20, 2024 03:42 PM Reporting Lab: [facility] [place] [address] Performing Lab: [facility] DIVISION COMPREHEN SIVE METABOLIC PANEL ASPARTATE AMINOTRANS FERASE [ENZYMATIC ACTIVITY/V OLUME] IN SERUM OR PLASMA 22 U/L 5 - 34 07/20 Specimen Type: PLASMA Comment: No hemolysis noted. Ordering Provider: BEV TORRES Report Released Date/Time: Jul 20, 2024 03:42 PM Reporting Lab: [facility] [place] [address] Performing Lab: [facility] DIVISION COMPREHEN SIVE METABOLIC PANEL ALANINE AMINOTRANS FERASE [ENZYMATIC ACTIVITY/V OLUME] IN SERUM OR PLASMA 16 U/L 8 - 40 07/20 Specimen Type: PLASMA Comment: No hemolysis noted. Ordering Provider: BEV TORRES Report Released Date/Time: Jul 20, 2024 03:42 PM Reporting Lab: [facility] [place] [address] Performing Lab: [facility] DIVISION COMPREHEN SIVE METABOLIC PANEL GLOMERULAR FILTRATION RATE/1.73 SQ M.PREDICTE D [VOLUME RATE/AREA] IN SERUM, PLASMA OR BLOOD BY CREATININE -BASED FORMULA (CKD-EPI 2020) 112.76 60 07/20 Specimen Type: PLASMA Comment: No hemolysis noted. Ordering Provider: BEV TORRES Report Released Date/Time: Jul 20, 2024 03:42 PM Reporting Lab: [facility] [place] [address] Performing Lab: [facility] DIVISION HGA1C HEMOGLOBIN A1C/HEMOGL OBIN.TOTAL IN BLOOD 5.5 4.0 - 6.0 07/20 Specimen Type: BLOOD No comment entered. Ordering Provider: BEV TORRES Report Released Date/Time: Jul 20, 2024 03:42 PM Reporting Lab: [facility] [place] [address] Performing Lab: [facility] DIVISION CBC LEUKOCYTES [#/VOLUME] IN BLOOD BY AUTOMATED COUNT 5.1 10*3/uL 3.6 - 11.2 07/20 Specimen Type: BLOOD No comment entered. Ordering Provider: BEV TORRES Report Released Date/Time: Jul 20, 2024 03:42 PM Reporting Lab: [facility] [place] [address] Performing Lab: [facility] DIVISION CBC ERYTHROCYT ES [#/VOLUME] IN BLOOD BY AUTOMATED COUNT 4.81 10*6/uL 4.10 - 5.70 07/20 Specimen Type: BLOOD No comment entered. Ordering Provider: BEV TORRES Report Released Date/Time: Jul 20, 2024 03:42 PM Reporting Lab: [facility] [place] [address] Performing Lab: [facility] DIVISION CBC HEMOGLOBIN [MASS/VOLU ME] IN BLOOD 14.1 g/dL 13.1 - 16.8 07/20 Specimen Type: BLOOD No comment entered. Ordering Provider: BEV TORRES Report Released Date/Time: Jul 20, 2024 03:42 PM Reporting Lab: [facility] [place] [address] Performing Lab: [facility] DIVISION CBC HEMATOCRIT [VOLUME FRACTION] OF BLOOD 40.4 38.2 - 48.4 07/20 Specimen Type: BLOOD No comment entered. Ordering Provider: BEV TORRES Report Released Date/Time: Jul 20, 2024 03:42 PM Reporting Lab: [facility] [place] [address] Performing Lab: [facility] DIVISION CBC MCV [ENTITIC VOLUME] BY AUTOMATED COUNT 84.0 fL 80.0 - 100.0 07/20 Specimen Type: BLOOD No comment entered. Ordering Provider: BEV TORRES Report Released Date/Time: Jul 20, 2024 03:42 PM Reporting Lab: [facility] [place] [address] Performing Lab: [facility] DIVISION CBC MCH [ENTITIC MASS] BY AUTOMATED COUNT 29.3 pg 27.0 - 34.0 07/20 Specimen Type: BLOOD No comment entered. Ordering Provider: BEV TORRES Report Released Date/Time: Jul 20, 2024 03:42 PM Reporting Lab: [facility] [place] [address] Performing Lab: [facility] DIVISION CBC MCHC [MASS/VOLU ME] BY AUTOMATED COUNT 34.9 g/dL 33.0 - 36.0 07/20 Specimen Type: BLOOD No comment entered. Ordering Provider: BEV TORRES Report Released Date/Time: Jul 20, 2024 03:42 PM Reporting Lab: [facility] [place] [address] Performing Lab: [facility] DIVISION CBC PLATELETS [#/VOLUME] IN BLOOD BY AUTOMATED COUNT 235 10*3/uL 150 - 400 07/20 Specimen Type: BLOOD No comment entered. Ordering Provider: BEV TORRES Report Released Date/Time: Jul 20, 2024 03:42 PM Reporting Lab: [facility] [place] [address] Performing Lab: [facility] DIVISION CBC PLATELET MEAN VOLUME [ENTITIC VOLUME] IN BLOOD BY AUTOMATED COUNT 10.7 fL 7.5 - 11.2 07/20 Specimen Type: BLOOD No comment entered. Ordering Provider: BEV TORRES Report Released Date/Time: Jul 20, 2024 03:42 PM Reporting Lab: [facility] [place] [address] Performing Lab: [facility] DIVISION CBC ERYTHROCYT E DISTRIBUTI ON WIDTH [RATIO] BY AUTOMATED COUNT 12.4 11.8 - 15.1 07/20 Specimen Type: BLOOD No comment entered. Ordering Provider: BEV TORRES Report Released Date/Time: Jul 20, 2024 03:42 PM Reporting Lab: [facility] [place] [address] Performing Lab: [facility] DIVISION CBC LYMPHOCYTE S/100 LEUKOCYTES IN BLOOD BY AUTOMATED COUNT 34 07/20 Specimen Type: BLOOD No comment entered. Ordering Provider: BEV TORRES Report Released Date/Time: Jul 20, 2024 03:42 PM Reporting Lab: [facility] [place] [address] Performing Lab: [facility] DIVISION CBC MONOCYTES/ 100 LEUKOCYTES IN BLOOD BY AUTOMATED COUNT 9 07/20 Specimen Type: BLOOD No comment entered. Ordering Provider: BEV TORRES Report Released Date/Time: Jul 20, 2024 03:42 PM Reporting Lab: [facility] [place] [address] Performing Lab: [facility] DIVISION CBC NEUTROPHIL S/100 LEUKOCYTES IN BLOOD BY AUTOMATED COUNT 54 07/20 Specimen Type: BLOOD No comment entered. Ordering Provider: BEV TORRES Report Released Date/Time: Jul 20, 2024 03:42 PM Reporting Lab: [facility] [place] [address] Performing Lab: [facility] DIVISION CBC EOSINOPHIL S/100 LEUKOCYTES IN BLOOD BY AUTOMATED COUNT 2 07/20 Specimen Type: BLOOD No comment entered. Ordering Provider: BEV TORRES Report Released Date/Time: Jul 20, 2024 03:42 PM Reporting Lab: [facility] [place] [address] Performing Lab: [facility] DIVISION CBC BASOPHILS/ 100 LEUKOCYTES IN BLOOD BY AUTOMATED COUNT 1 07/20 Specimen Type: BLOOD No comment entered. Ordering Provider: BEV TORRES Report Released Date/Time: Jul 20, 2024 03:42 PM Reporting Lab: [facility] [place] [address] Performing Lab: [facility] DIVISION CBC LYMPHOCYTE S [#/VOLUME] IN BLOOD BY AUTOMATED COUNT 1.75 10*3/uL 0.77 - 4.50 07/20 Specimen Type: BLOOD No comment entered. Ordering Provider: BEV TORRES Report Released Date/Time: Jul 20, 2024 03:42 PM Reporting Lab: [facility] [place] [address] Performing Lab: [facility] DIVISION CBC MONOCYTES [#/VOLUME] IN BLOOD BY AUTOMATED COUNT 0.44 10*3/uL 0.19 - 0.80 07/20 Specimen Type: BLOOD No comment entered. Ordering Provider: BEV TORRES Report Released Date/Time: Jul 20, 2024 03:42 PM Reporting Lab: [facility] [place] [address] Performing Lab: [facility] DIVISION CBC NEUTROPHIL S [#/VOLUME] IN BLOOD BY AUTOMATED COUNT 2.73 10*3/uL 2.10 - 8.00 07/20 Specimen Type: BLOOD No comment entered. Ordering Provider: BEV TORRES Report Released Date/Time: Jul 20, 2024 03:42 PM Reporting Lab: [facility] [place] [address] Performing Lab: [facility] DIVISION CBC EOSINOPHIL S [#/VOLUME] IN BLOOD BY AUTOMATED COUNT 0.12 10*3/uL 0.00 - 0.60 07/20 Specimen Type: BLOOD No comment entered. Ordering Provider: BEV TORRES Report Released Date/Time: Jul 20, 2024 03:42 PM Reporting Lab: [facility] [place] [address] Performing Lab: [facility] DIVISION CBC BASOPHILS [#/VOLUME] IN BLOOD BY AUTOMATED COUNT 0.03 10*3/uL 0.00 - 0.20 07/20 Specimen Type: BLOOD No comment entered. Ordering Provider: BEV TORRES Report Released Date/Time: Jul 20, 2024 03:42 PM Reporting Lab: [facility] [place] [address] Performing Lab: [facility] DIVISION TSH W/ REFLEX FT4 (STL) THYROTROPI N [UNITS/VOL UME] IN SERUM OR PLASMA 1.369 u[IU]/mL 0.470 - 5.000 07/20 Specimen Type: PLASMA No comment entered. Ordering Provider: BEV TORRES Report Released Date/Time: Jul 20, 2024 03:42 PM Reporting Lab: [facility] [place] [address] Performing Lab: [facility] DIVISION VITAMIN D, 25-HYDROX Y 25-HYDROXY VITAMIN D3 [MASS/VOLU ME] IN SERUM OR PLASMA 23.5 ng/mL 30 - 96 07/20 L Specimen Type: SERUM No comment entered. Ordering Provider: BEV TORRES Report Released Date/Time: Jul 20, 2024 03:42 PM Reporting Lab: [facility] [place] [address] Performing Lab: [facility] [place] FREE T4 (STL) THYROXINE (T4) FREE [MASS/VOLU ME] IN SERUM OR PLASMA 0.93 ng/mL 0.70 - 1.48 07/20 Specimen Type: PLASMA No comment entered. Ordering Provider: BEV TORRES Report Released Date/Time: Jul 20, 2024 03:42 PM Reporting Lab: [facility] [address] Performing Lab: [facility] [id number] [place] [address] ANTI-NUCL EAR ANTIBODY (STL) NUCLEAR AB [PRESENCE] IN SERUM NEGATIVE 09/18 Specimen Type: SERUM No comment entered. Ordering Provider: BEV TORRES Report Released Date/Time: Sep 19, 2023 03:16 PM Reporting Lab: [address] [address] Performing Lab: [address] [address] [facility] RHEUMATOI D FACTOR (STL) RHEUMATOID FACTOR [UNITS/VOL UME] IN SERUM OR PLASMA <15.0 0 - 29 09/18 Specimen Type: SERUM No comment entered. 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 Vital Sign Value Date Comments Source Respiratory Rate 18 br/min 12/26/2023 16:20:00 [id number] Blood Pressure Manual Automatic 12/26/2023 16:20:00 [id number] Peripheral Pulse Rate 56 bpm 12/26/2023 16:20:00 [id number] BP Site Left arm 12/26/2023 16:20:00 [id number] Systolic Blood Pressure 113 mm[Hg] 12/26/19 24 16:20:00 [facility] Diastolic Blood Pressure 75 mm[Hg] 024 16:20:00 [facility] Mean Arterial Pressure, Calc 88 mm[Hg] 12/26/2023 16:20:00 [facility] Temperature Oral 36.5 Giselle 12/26/2023 16:20:00 [facility] SYSTOLIC BLOOD PRESSURE 107 10/30/19 25 14:01:58 [facility] DIASTOLIC BLOOD PRESSURE 68 025 14:01:58 [facility] PULSE OXIMETRY 99 10/29/2024 14:01:58 [facility] WEIGHT 136 10/29/2024 14:01:58 [facility] BMI 20 kg/m2 10/29/2024 14:01:58 [facility] PAIN 2 10/29/2024 14:01:58 [facility] HEIGHT 70 10/29/2024 14:01:58 [facility] TEMPERATURE 98 10/29/2024 14:01:58 [facility] PULSE 70 10/29/2024 14:01:58 [facility] RESPIRATION 14 10/29/2024 14:01:58 [facility] SYSTOLIC BLOOD PRESSURE 108 07/20/19 25 15:07:34 [facility] DIASTOLIC BLOOD PRESSURE 69 025 15:07:34 [facility] PULSE OXIMETRY 100 07/20/2024 15:07:34 [facility] WEIGHT 143.6 07/20/2024 15:07:34 [facility] BMI 21 kg/m2 07/20/2024 15:07:34 [facility] PAIN 0 07/20/2024 15:07:34 [facility] TEMPERATURE 97.7 07/20/2024 15:07:34 [facility] PULSE 69 07/20/2024 15:07:34 [facility] RESPIRATION 16 07/20/2024 15:07:34 [facility] Encounters Combined list of: 1) Encounters from Department of [facility] facilities going backup to the last 18 months, not all [place] inpatient encounters are included; 2) Encounters from the Department of [facility] facilities going backup to 280 months. Location Location Details Encounter Type Encounter Number Reason For Visit Attending Provider ADM Date DC Date Status Disposition Source [facility] Optometry ) OUTPATIENT [id number] routine ZULY GARCIA 07/24 Released w/o Limitations [facility] Optomet [facility]) [facility] Emergency Room) OUTPATIENT [id number] allergi es/woun d check REVA RUTH 10/29 Released w/o Limitations [facility] Emergen cy Room) [facility] Element B-1) OUTPATIENT [id number] INFECTE D, INGROWN HAIRS RAISA COLEMAN 11/01 Released w/o Limitations [facility] Element B-1) [facility] Element B-1) TELE CONSULT [id number] LAB RESULTS NEEDED JANICE PETTY 11/05 [facility] Element B-1) [facility] Element B-1) OUTPATIENT [id number] ance evaluat ion JANICE PETTY 11/08 Released w/o Limitations [facility] Element B-1) [facility] Element B-1) OUTPATIENT [id number] left pointer finger injury RAISA COLEMAN 11/28 Released w/o Limitations [facility] Element B-1) [facility] Element B-1) OUTPATIENT [id number] POSS INFECTE D INDEX FINGER JANICE PETTY S 01/01 Released w/o Limitations [facility] Element B-1) [facility]N Disenroll ment) TELE CONSULT [id number] vasecto my consult MARKUS GRAF 08/18 [facility] Disenro llment) [facility] Disenroll ment) OUTPATIENT [id number] JEN BRANDT 08/27 Released w/o Limitations [facility] Disenro llment) [facility] Disenroll ment) OUTPATIENT [id number] vasecto my consult LILY HERNADEZ 09/04 Released w/o Limitations [facility] Disenro llment) [facility] Urology) OUTPATIENT [id number] Vas EZEKIEL Day 11/05 Released w/o Limitations [facility] ) [facility] Disenroll ment) TELE CONSULT [id number] ALLERGY MEDS NEEDED MARKUS GRAF 11/05 [facility] Disenro llment) [facility] Urology) OUTPATIENT [id number] Vas EZEKIEL JACOBS 08/11 Sick at Home/Quarter s [facility] ) [facility] OUTPATIENT [id number] possibl e post-va s infecti on EZEKIEL JACOBS 08/19 Released with Work/Duty Limitations [facility] Urology ) [facility] Disenroll ment) OUTPATIENT [id number] LILY Hopson 10/29 Released w/o Limitations [facility] Disenro llment) [facility] Disenroll ment) TELE CONSULT [id number] MED REFBROOKE LOVELACE 11/25 [facility] Disenro llment) [facility] N FHC Element A-2) OUTPATIENT [id number] PT FEELING TIRED ALL THE TIME ISABELLE BURGESS Dennis 01/24 Released w/o Limitations [facility] RSN [facility] Element A-2) [facility] N [facility]HC Element A-2) OUTPATIENT [id number] poss infecti on on right leg(und erneath knee) DIAN MONTENEGRO 01/28 Sick at Home/Quarter s [facility] RSN C Element A-2) [facility] Emergency Room) OUTPATIENT [id number] 23 yoM rt leg swollen GOMEZ MATHEWS 01/30 Released w/o Limitations [facility] Emergen cy Room) [facility] Emergency Room) OUTPATIENT [id number] 23yo M ri. leg cyst f/u GOMEZ MATHEWS 01/31 Released w/o Limitations [facility] Emergen cy Room) [facility] Disenroll ment) OUTPATIENT [id number] f/u er abcess leg LUIS NAZARIO 02/01 Released w/o Limitations [facility] Disenro llment) [facility] Disenroll ment) OUTPATIENT [id number] f/up lab for always beeing tired LUIS NAZARIO 02/02 Released w/o Limitations [facility] Disenro llment) [facility](RSN C Element B-1) OUTPATIENT [id number] persona l issue LUIS NAZARIO 04/05 Released w/o Limitations [facility](RSN C Element B-1) [facility]N C Element B-1) OUTPATIENT [id number] neck problem s x weeks ÁLVARO BHARDWAJ H 04/13 Released w/o Limitations [facility](RSN C Element B-1) [facility] Disenroll ment) TELE CONSULT [id number] REFERRA L OFF BASE NEEDED MUNA SENA 04/26 [facility] Disenro llment) [facility] Disenroll ment) TELE CONSULT [id number] request for blood work MUNA SENA 05/16 [facility] Disenro llment) [facility] Element A-2) OUTPATIENT [id number] poss staph infecti on ISABELLE BURGESS 05/31 Released w/o Limitations [facility] Element A-2) [facility]) OUTPATIENT [id number] SKIN ABSCESS JENAE RAMIREZ 05/31 Released w/o Limitations [facility]) [facility]) OUTPATIENT [id number] f/u right knee repack JENAE RAMIREZ 06/01 Released w/o Limitations [facility]) [facility] Orthopedi cs) OUTPATIENT [id number] f/u right knee wound check GOLD PLATT 06/06 Released w/o Limitations [facility] Orthope dics) [facility] Element B-1) TELE CONSULT [id number] lab results MUNA SENA 06/07 [facility] Element B-1) [facility] Physical Therapy) OUTPATIENT [id number] neck stiffne ss DB DANG 06/13 Released w/o Limitations [facility] Physica l Therapy ) [facility]) OUTPATIENT [id number] R knee abscess /PA Shawn patient TADEO RIZVI 06/14 Released with Work/Duty Limitations [facility]) [facility] Infectiou s Disease) OUTPATIENT [id number] BURSITI S PREPATE LLAR SEPTIC BETSY MENDOSA 06/15 Released w/o Limitations [facility] Infecti ous Disease ) [facility] Disenroll ment) TELE CONSULT [id number] Referra l results ready for review. ÁLVARO BHARDWAJ H 06/20 [facility] Disenro llment) [facility] N C Element A-2) OUTPATIENT [id number] ulcer on tongue HARIKA DUGGAN Rohith 06/24 Released w/o Limitations [facility] RSN [facility] Element A-2) [facility] Emergency Room) OUTPATIENT [id number] GOMEZ LEON 01/08 Released w/o Limitations [facility] Emergen cy Room) [facility] Disenroll ment) OUTPATIENT [id number] f/u er soft tissue ingesti on DAVID STOKES 01/10 Released w/o Limitations [facility] Disenro llment) [facility] Disenroll ment) OUTPATIENT [id number] BACK ISABELLE BURGESS 02/20 Released w/o Limitations [facility] Disenro llment) [facility] Disenroll ment) OUTPATIENT [id number] [facility] ISABELLE BURGESS 03/23 Released w/o Limitations [facility] Disenro llment) [facility] Element C-1) OUTPATIENT [id number] chiropr actic request for back/ne ck ÁLVARO BHARDWAJ H 08/17 Released w/o Limitations [facility] Element C-1) [facility] Element C-1) OUTPATIENT [id number] poss ingrown hair on buttock s AMBER GANT 09/04 Released w/o Limitations [facility] Element C-1) [facility] Element C-1) OUTPATIENT [id number] left leg pain x days LASHAE, AASIF H 09/07 Released w/o Limitations [facility] Element C-1) [facility] Dermatolo gy) OUTPATIENT [id number] CELLULI TIS OF THE LEFT BUTTOCK KENYATTA MEREDITH 11/07 Released w/o Limitations [facility] Dermato logy) [facility] N [facility]HC Element D-2) OUTPATIENT [id number] NFTF MUNA MCMULLEN 05/10 Released w/o Limitations [facility] Element D-2) [facility] Element C-1) OUTPATIENT [id number] neck px LASHAE, AASIF H 06/07 Released w/o Limitations [facility] Element C-1) [facility] Chiroprac tic Clinic) OUTPATIENT [id number] CERVICA LGIA ISABELLE ISABEL 07/12 Released w/o Limitations [facility] Chiropr actic Clinic) [facility] Chiroprac tic Clinic) OUTPATIENT [id number] ISABELLE ISABEL 07/19 Released w/o Limitations [facility] Chiropr actic Clinic) [facility] Chiroprac tic Clinic) OUTPATIENT [id number] ISABELLE ISABEL 07/24 Released w/o Limitations [facility] Chiropr actic Clinic) [facility] Element C-1) TELE CONSULT [id number] MRI results ANEL RICHARDSON 07/27 [facility] Element C-1) [facility] Element C-1) TELE CONSULT [id number] Referra l results LASHAE, AASIF H 07/31 [facility] Element C-1) [facility] Element C-1) OUTPATIENT [id number] MRI results review per ÁLVARO Perkins H 08/02 Released w/o Limitations [facility] Element C-1) [facility] Chiroprac tic Clinic) OUTPATIENT [id number] ISABELLE ISABEL 08/15 Released w/o Limitations [facility] Chiropr actic Clinic) [facility] Chiroprac tic Clinic) OUTPATIENT [id number] ISABELLE ISABEL 08/27 Released w/o Limitations [facility] Chiropr actic Clinic) [facility] Neurosurg henri) OUTPATIENT [id number] Cervica lgia/Ra DB Unger 09/09 Released w/o Limitations [facility] Neurosu rgery) [facility] Element C-1) TELE CONSULT [id number] Notes Entered by: SHANNA KIM 11 Sep 2011 0948 ------- ------- ------- ------- -- ÁLVARO Espinosa H 09/10 [facility] Element C-1) [facility] Element C-1) TELE CONSULT [id number] Notes Entered by: FARRUKH OSORIO 04 Oct 2011 1529 ------- ------- ------- ------- -- Painful bumps on lower body x 3days JERRI PARDO 10/03 [facility] Element C-1) [facility] Element C-1) OUTPATIENT [id number] large painful bumps on back, tx for stap in the past ÁLVARO BHARDWAJ 10/04 Released w/o Limitations [facility] Element C-1) [facility] Chiroprac tic Clinic) OUTPATIENT [id number] ISABELLE ISABEL 10/16 Released w/o Limitations [facility] Chiropr actic Clinic) [facility] Neurosurg henri) OUTPATIENT [id number] F/U AFTER MRI DB LUTZ 12/16 Released w/o Limitations [facility] Neurosu rgery) [facility] Element C-1) OUTPATIENT [id number] ECHO lopez per [facility] ÁLVARO BHARDWAJ 02/04 [facility]itations [facility] Element C[facility]1) [facility] OUTPATIENT [id number] Notes Entered by: ARAVIND ALONSO 05 Mar 2012 1002 ------- ------- ------- ------- -- SOHAIL Morin 03/05 [facility] Limitations [facility] Element C-1) OUTPATIENT [id number] Sleepin ess/Pre mature ejacula ti AMBER GANT 04/14 [facility] Limitations [facility] Element C[facility]1) [facility] PHA Cell) OUTPATIENT [id number] Notes Entered by: ADRIÁN BUSBY 16 Jul 2012 1646 ------- ------- ------- ------- -- NFTF ADRIÁN FAJARDO 07/16 Released w/o Limitations [facility] PHA Cell) [facility]) OUTPATIENT [id number] PHA RL KANG 08/03 [facility]/o Limitations [facility] [facility] A) OUTPATIENT [id number] f/u PHA annual/ pain in neck/sl eep issues SURY NELSON 08/07 [place] Limitations [place] [facility] Family Health [facility]) [place] [facility] Public Health) OUTPATIENT [id number] Notes Entered by: ROBERTA MILLAN 14 Aug 2012 0849 ------- ------- ------- ------- -- 2583 COLIN ARTEAGA 08/13 [place]ased [place]/o Limitations [place] [facility] Public Health) [place] [facility] Family Health Team A) TELE CONSULT [id number] Notes Entered by: MICKI SMITH 19 Aug 2012 1339 ------- ------- ------- ------- -- Dermato logy [facility] 08/[facility] Health [facility]) [place] [facility] Physical Medicine) OUTPATIENT [id number] ZIYAD LANTIGUA PT 08/21 Released w/o Limitations [facility] Physica l Medic[facility]) [facility] Optometry ) OUTPATIENT [id number] Notes Entered by: BALBINA CURTIS 25 Aug 2012 1302 ------- ------- ------- ------- -- CVT for FLT line DL LOUISE VARGAS 08/25 [place]ased [place]/o Limitations [place] [facility] Optomet ry[facility] [place] [facility] Family Health Team A) OUTPATIENT [id number] derm SURY Morejon 08/27 [place]ased [place]/o Limitations [place] [facility] Family Health Team [facility]) [place] [facility] Family Health Team A) TELE CONSULT [id number] Notes Entered by: BRUNO LOBO 02 Dec 2012 1019 ------- ------- ------- ------- -- derm referLUIS Huffman 12/02 Referred for Appointment [facility] [place] [facility] PHA Cell) OUTPATIENT [id number] Notes Entered by: ERIC MILLAN 22 Dec 20122000 ------- ------- ------- ------- -- Initial base review MAO ARTEAGA 12/22 [place]ased w/o Limitations [place] [facility] PHA Cell) [place]( [facility] Optometry ) OUTPATIENT [id number] eye exam SHELBY ECHEVARRIA 12/23 [place]ased w/o Limitations [place] [facility] Opt[facility]) [place]) OUTPATIENT [id number] f/u giles harry, pt feels there may be other issue SURY NELSON 12/30 [place]ased w/o Limitations [place] [facility]) [facility]) OUTPATIENT [id number] SURY Colbert 01/19 Released w/o Limitations [place] [facility]) [facility]) TELE CONSULT [id number] Notes Entered by: ANGELES RIBERA 26 Jan 2013 0906 ------- ------- ------- ------- -- Labs LUIS GUZMÁN 01/26 Other Not Elsewhere Classified [facility] [place] [facility]) TELE CONSULT [id number] Notes Entered by: MICKI SMITH 16 Feb 2013 1320 ------- ------- ------- ------- -- Lab results SURY NELSON 02/16 [facility] [facility]) OUTPATIENT [id number] Pre-dep loyment SURY NELSON 02/25 [place] Limitations [place] [facility] Family Health Team [facility] [place] [facility] Referral [facility] t Center) TELE CONSULT [id number] Notes Entered by: JAMES MURRAY 12 Mar 2013 1329 ------- ------- ------- ------- -- Network Results PSG Report dated 03/05/13 SHIVA HEWITT 03/12 [place] [facility] [facility] Referra [facility] ent [place]) [place]( [facility] Family Health Team A) TELE CONSULT [id number] Notes Entered by: MICKI SMITH 12 Mar 2013 1336 ------- ------- ------- ------- -- sleep study results SURY NELSON 03/12 [place] [facility] Family Health Team [facility]) [place] [facility] Family Health Team A) TELE CONSULT [id number] Notes Entered by: ANGELES RIBERA 19 Mar 2013 1115 ------- ------- ------- ------- -- CPAP SE Craig 03/19 Other Not Elsewhere Classified [place] [facility] Family Health Team [facility]) [place] [facility] Family Health Team A) OUTPATIENT [id number] skin infecti on REGENCY MERIDIANRAFAEE R 08/07 [place]ased w/o Limitations [place] [facility] Family Health Team A) [place] [facility] Public Health) OUTPATIENT [id number] Notes Entered by: BRIDGER LAGUNAS 03 Sep 2013 0958 ------- ------- ------- ------- -- BRIDGER SORENSON 09/03 [place]ased w/o Limitations [place] [facility] Public Health[facility] [place] [facility] Mental Health Clinic) OUTPATIENT [id number] 150days deploym ent HANNAH COY 10/08 Released w/o Limitations [place] [facility] Mental Health Clinic) [place] [facility] Family Health Team A) OUTPATIENT [id number] Pre deploym ent SAMY ZAPATA 10/08 [place]ased w/o Limitations [place] [facility] Family Health Team A) Theater Facility OUTPATIENT [id number] 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 02/23 Released w/o Limitations Theater Facilit y [place] [facility] Family Health Team A) OUTPATIENT [id number] JAM GUTIERRES 07/04 [place]ased w/o Limitations [place] [facility] Family Health Team A) [place] [facility] Family Health Team A) TELE CONSULT [id number] Notes Entered by: TADEO BARTH 25 Aug 2014 1516 ------- ------- ------- ------- -- Deploym ent ariane SE SWENSON 08/25 [place]ased w/o Limitations [place] [facility] Family Health Team A) [place] [facility] Flight Medicine) OUTPATIENT [id number] Notes Entered by: LEFTY SHELL 20 Sep 2014 1524 ------- ------- ------- ------- -- Audiogr SYLVESTER HARDY 09/20 [place]ased w/o Limitations [place] [facility] Flight Medicin e) [place] [facility] PHA Cell) OUTPATIENT [id number] Notes Entered by: LISHA GONZALEZ 28 Sep 2014 1119 ------- ------- ------- ------- -- LISHA SANDRA 09/28 [place]ased [place]/o Limitations [place] [facility] PHA Cell) [place] [facility] Family Health Team A) OUTPATIENT [id number] JAM RUEDA 11/12 [place]ased [place]/o Limitations [place] [facility] Family Health Team A) [place] [facility] Hearing Conservat ion) OUTPATIENT [id number] WALK IN HERB HAIR 06/23 [place]ased w/o Limitations [place] [facility] Hearing Conserv ation) [place] [facility] Clinic) OUTPATIENT [id number] Notes Entered by: JOSE PINTO 24 Jun 2015 1350 ------- ------- ------- ------- -- IPCOT/D EROS extensi on medical clearan SANDOR PINTO 06/24 [place]ased [place]/o Limitations [place] [facility] Clinic) [place] [facility] Family Health Team A) OUTPATIENT [id number] Foot injury/ lakeshain BETSY Patel 08/21 Released with Work/Duty Limitations [place] [facility] Family Health Team A) [place] [facility] Family Health Team A) OUTPATIENT [id number] profile extensi on ADELINA VITALE 09/27 [place]ased w/o Limitations [place] [facility] Family Health Team A) [place] [facility]) OUTPATIENT [id number] THOMAS PARK 09/28 Released w/o Limitations [place] [facility]) [place] [facility] Family Health Team A) TELE CONSULT [id number] Notes Entered by: ADELINA VITALE 30 Sep 2015 1655 ------- ------- ------- ------- -- Imaging result ASTRID KUMAR 09/29 [facility]ased to Self Care [place] [facility] Family Health Team A) [place] [facility] Cell) OUTPATIENT [id number] Notes Entered by: SHANICE SERNA 05 Oct 2015 1031 ------- ------- ------- ------- -- BETSY SANTIAGO 10/04 [place]ased w/o Limitations [place] [facility] PHA Cell) [place] [facility] Family Health Team A) OUTPATIENT [id number] Blockag e in right ear ALICIA RODRIGUEZ S 12/12 [place]ased w/o Limitations [place] Family Health Team A) [place] [facility] Family Health Team A) OUTPATIENT [id number] tinglin g sensati on on left side and shoulde r, getting worse LIAN SON 08/30 Immediate Referral [place] [facility] Family Health Team A) [place] [facility] Family Health Team A) OUTPATIENT [id number] Podiatr y Referra BETSY Giordano 08/31 Released w/o Limitations [place] Family Health Team A) [place] [facility] Urgent Care) OUTPATIENT [id number] Notes Entered by: JOSIE MORRIS 15 Sep 2016 1616 ------- ------- ------- ------- -- dizzy YUKO TORRES 09/15 Released w/o Limitations [place] Urgent [facility]) [place] [facility] Hearing Conservat ion[facility] OUTPATIENT [id number] Annual Audiogr am ASHLEY ORLANDO 10/04 Released w/o Limitations [place] Hearing Conserv ation) [place] [facility] Physical Medicine) OUTPATIENT [id number] Pain in left shoulde r ISSAC TEIXEIRA L 10/08 Released w/o Limitations [place](B [facility] Medicin [facility]) [place] [facility] Physical Medicine) OUTPATIENT [id number] BUNNY KEEN 10/14 Released w/o Limitations [place] Medicin [facility]) [place] [facility] Clinic) OUTPATIENT [id number] Notes Entered by: MASOOD BROWNE 16 Oct 2016 0806 ------- ------- ------- ------- -- CALEB EVERETT 10/15 Released w/o Limitations [place]([facility]) [place] [facility] Physical Medicine) OUTPATIENT [id number] CANDIDO MEAD 10/18 Released w/o Limitations [place]([facility] Physica l Medicin e) [place] [facility] Physical Medicine) OUTPATIENT [id number] BUNNY KEEN 10/23 Released w/o Limitations [facility] [place] [facility] [place] Physical Medicine) OUTPATIENT [id number] BUNNY KEEN 10/24 Released w/o Limitations [place] [facility] [place] [facility] Physical Medicine) OUTPATIENT [id number] BUNNY KEEN 10/28 Released w/o Limitations [place] [facility] [place] [facility] Physical Medicine) OUTPATIENT [id number] CANDIDO MEAD 11/01 Released w/o Limitations [place] [facility]in [facility]) [place]) OUTPATIENT [id number] Notes Entered by: JOSE PINTO 02 Nov 2016 1310 ------- ------- ------- ------- -- MARIIA/Clarissa [facility] SANDOR Gomez 11/02 Released w/o Limitations [place] [facility]) [place] [facility] Physical Medicine) OUTPATIENT [id number] ISSAC TEIXEIRA 11/08 Released w/o Limitations [place] [facility]) [place] [facility] Physical Medicine) OUTPATIENT [id number] Notes Entered by: CANDIDO MEAD 28 Nov 2016 0732 ------- ------- ------- ------- -- Walk-in tractio n CANDIDO MEAD Franny 11/27 Released w/o Limitations [facility] [place] [facility] [place]) OUTPATIENT [id number] Notes Entered by: GERTRUDE SWENSON 18 Dec 2016 0713 ------- ------- ------- ------- -- walk in [facility] 12/17 Released w/o Limitations [place] [facility]in [facility]) [place]) OUTPATIENT [id number] Notes Entered by: GERTRUDE SWENSON 24 Dec 2016 1009 ------- ------- ------- ------- -- walk in [facility] 12/24 [place]ased w/o Limitations [place] [facility] [facility] OUTPATIENT [id number] Notes Entered by: GERTRUDE SWENSON 26 Dec 2016 0926 ------- ------- ------- ------- -- walkin [facility] 12/26 Released w/o Limitations [place] [facility] [place] [facility] OUTPATIENT [id number] [facility] 01/02 Released w/o Limitations [place] [facility]) [place]) OUTPATIENT [id number] [facility] 01/08 Released w/o Limitations [place] [facility] [place]) OUTPATIENT [id number] Notes Entered by: GERTRUDE SWENSON 11 Jan 2017 0959 ------- ------- ------- ------- -- walk in [facility] 01/11 Released w/o Limitations [place] [facility] [place]) OUTPATIENT [id number] Notes Entered by: GERTRUDE SWENSON 15 Jan 2017 1028 ------- ------- ------- ------- -- walk in [facility] 01/15 Released w/o Limitations [place] [facility]) [place]) OUTPATIENT [id number] PUNEET ISSAC L 01/30 Released w/o Limitations [facility] [place] [facility]) [place]) OUTPATIENT [id number] Notes Entered by: GERTRUDE SWENSON 04 Feb 2017 1040 ------- ------- ------- ------- -- walk in [facility] 02/04 Released w/o Limitations [facility] [place] [facility] [place]) OUTPATIENT [id number] neck pain, everyda y painful [facility] 02/04 Released w/o Limitations [facility] [place] [facility] [place]) OUTPATIENT [id number] Notes Entered by: CANDIDO MEAD 15 Feb 2017 1610 ------- ------- ------- ------- -- Walk-in [facility] CANDIDO MEAD 02/15 Released w/o Limitations [place] [facility]) [place]) OUTPATIENT [id number] Notes Entered by: CANDIDO MEAD 26 Feb 2017 1150 ------- ------- ------- ------- -- Walk-in [facility] CANDIDO MEAD 02/26 Released w/o Limitations [place] [facility] [place] Physical Medicine) OUTPATIENT [id number] Notes Entered by: CANDIDO MEAD 01 Mar 2017 1602 ------- ------- ------- ------- -- Walk-in [facility] CANDIDO MEAD 03/01 Released w/o Limitations [place] [facility]) [place] [facility] Physical Medicine) OUTPATIENT [id number] ISSAC TEIXEIRA 04/02 Released w/o Limitations [place] [facility]) [place] [facility] Physical Medicine) OUTPATIENT [id number] Notes Entered by: GERTRUDE SWENSON 15 Apr 2017 1259 ------- ------- ------- ------- -- tractio n walk in BUNNY KEEN 04/15 Released w/o Limitations [place] [facility]) [place] [facility] Physical Medicine) OUTPATIENT [id number] coming in at 1300 CANDIDO MEAD 04/26 Released w/o Limitations [place] [facility]) [place] [facility] Physical Medicine) OUTPATIENT [id number] CANDIDO MEAD 05/01 Released w/o Limitations [place] [facility]) [place] [facility] Physical Medicine) OUTPATIENT [id number] BUNNY KEEN 05/08 Released w/o Limitations [place] [facility]) [place] [facility] Family Health Team A) OUTPATIENT [id number] f/u for toe pain, and mole check, [id number] ADELINA VITALE 11/22 [place]ased w/o Limitations [place] [facility] Family Health Team [facility]) [place] [facility] Family Health Team A) OUTPATIENT [id number] join pain fingers and toes, right index finger is swollen [phone] ADELINA VITALE 01/16 [place]ased w/o Limitations [place] [facility] Family Health Team A) [place] [facility] Public Health) OUTPATIENT [id number] Notes Entered by: JANAK RIZO 30 Jan 2018 1615 ------- ------- ------- ------- -- Annual audiogr am JANAK RIZO 01/30 [place]ased w/o Limitations [place] [facility] Public Health) [place] [facility] Hearing Conservat ion) OUTPATIENT [id number] Notes Entered by: JANAK RIZO 04 Feb 2018 1532 ------- ------- ------- ------- -- Audiogr am JANAK RIZO 02/04 [place]ased w/o Limitations [place] [facility] Hearing Conserv ation) [place] [facility]) OUTPATIENT [id number] R foot([phone])ZIYAD Sanderson pt 02/04 Released w/o Limitations [place] [facility] [place] [facility]) OUTPATIENT [id number] [facility] [phone] THOMAS MALCOLM 02/27 Released w/o Limitations [place] [facility]) [place] [facility] Family Health Team A) OUTPATIENT [id number] Notes Entered by: DAVID RAYA 27 Feb 2018 1020 ------- ------- ------- ------- -- PHAQ REVIEW ADELINA VITALE 02/27 Released w/o Limitations [place] [facility]) [address] [place] [address] [facility])([facility] kenan Med Tm B Non-AD BCC) OUTPATIENT [id number] discuss right foot and knee issues/ diabete s check/6 [phone] MAO SCHOFIELD 10/27 Released w/o Limitations [address] [place] [address] [facility])( amily Med Tm B Non-AD BCC) [address] [place] [address])([facility] kenan Med Tm B Non-AD BCC) TELE CONSULT [id number] Notes Entered by: NATHALIA LONGORIA 13 Nov 2018 1449 ------- ------- ------- ------- -- Delores Rodriguez /Ruddy arevalo/[phone] CARLO YBARRA 11/13 Referred for Appointment [address] [place] [address])( amily Med Tm B Non-AD BCC) [address] [place] [address])([facility] kenan Med Tm B Non-AD BCC) TELE CONSULT [id number] Notes Entered by: PASTORA JACKSON 08 Dec 2018 0930 ------- ------- ------- ------- -- Sx: Rupert Ahuja - - tsg* CARLO YBARRA 12/08 Referred for Appointment [address] [place] [address] [facility])( amily Med Tm B Non-AD BCC) [address] [place] [address])(Jose rior Op Med Cln Tm A Ad) TELE CONSULT [id number] Notes Entered by: HORTENCIA YUSUF 10 Feb 2019 1309 ------- ------- ------- ------- -- SX: Abhishek tijerina/[phone] CARLO YBARRA 02/10 Referred for Appointment [address] [place] [address])(W arrior Op Med Cln Tm A Ad) [address] [place] [address])(War rior Op Med Cln Tm A Ad) OUTPATIENT [id number] Food allergy CARY REBECCA M 02/12 Released w/o Limitations [facility])(W arrior Op Med Cln Tm A Ad) [facility])(War rior Op Med Cln Tm A Ad) OUTPATIENT [id number] General check up [phone] / [id number] REBECCA TOWNSEND 03/04 Released w/o Limitations [facility])(W arrior Op Med Cln Tm A Ad) [facility])(War rior Op Med Cln Tm A Ad) OUTPATIENT [id number] Neck and back pain / referra l [phone] / [id number] LOUISE GONZALEZ 04/09 Released w/o Limitations [address] [place] [address])(W arrior Op Med Cln Tm A Ad) [address] [place] [address])(Bas e Operation al Medicine Clin) OUTPATIENT [id number] DOD PHA LOUISE GONZALEZ 04/16 Released w/o Limitations [address] [place] [address])(B ase Operati onal Medicin e Clin) [address] [place] [address])(Sco tt Flight Medicine Tm) TELE CONSULT [id number] Notes Entered by: ZEINA PUGH 17 Apr 2019 0809 ------- ------- ------- ------- -- MAO TRIVEDI 04/[address] [place] [address])(S cott Flight Medicin e Tm) [address] [place] [address])(Opt ometry) OUTPATIENT [id number] Routine eye exam [id number] PABLO CLANCY 04/17 Released w/o Limitations [address] [place] [address])(O ptometr y) [address] [place] [address])(Chi ropractic ) OUTPATIENT [id number] Pain in thoraci c spine BRYSON MARCANO 05/05 Released w/o Limitations [employer] [facility])(C hiropra ctic) [employer] [facility])(Chi ropractic ) OUTPATIENT [id number] Neck Paiun BRYSON MARCANO R 05/12 Released w/o Limitations [employer] [facility])(C hiropra ctic) [employer] [facility])(Chi ropractic ) OUTPATIENT [id number] neck pain BRYSON MARCANO R 06/09 Released w/o Limitations [employer] [facility])(C hiropra ctic) [employer] [facility])(Chi ropractic ) OUTPATIENT [id number] neck BRYSON MARCANO R 06/23 Released w/o Limitations [employer] [facility])(C hiropra ctic) [employer] [facility])(Chi ropractic ) OUTPATIENT [id number] naeck pain BRYSON MARCANO R 06/26 Released w/o Limitations [employer] [facility])(C hiropra ctic) [employer] [facility])(Chi ropractic ) OUTPATIENT [id number] neck pain BRYSON MARCANO R 07/06 Released w/o Limitations [employer] [facility])(C hiropra ctic) [employer] [facility])(Chi ropractic ) OUTPATIENT [id number] lbp BRYSON MARCANO R 07/13 Released w/o Limitations [employer] [facility])(C hiropra ctic) [employer] [facility])(Chi ropractic ) OUTPATIENT [id number] neck and low back BRYSON MARCANO R 07/31 Released w/o Limitations [employer] [facility])(C hiropra ctic) [employer] [facility])(Chi ropractic ) OUTPATIENT [id number] back pain BRYSON MARCANO R 08/05 Released w/o Limitations [employer] [facility])(C hiropra ctic) [address] [place] [address])(Chi ropractic ) OUTPATIENT [id number] back pain BRYSON MARCANO R 08/13 Released w/o Limitations [address] [place] [address])(C hiropra ctic) [address] [place] [address])(Chi ropractic ) OUTPATIENT [id number] lbp BRYSON MARCANO R 08/20 Released w/o Limitations [address] [place] [address])(C hiropra ctic) [address] [place] [address])(War rior Op Med Cln Tm A Ad) OUTPATIENT [id number] discuss labs/te st [phone] OCTOBERCAROLYNE 09/27 Released w/o Limitations [address] [place] [address])(W arrior Op Med Cln Tm A Ad) [address] [place] [address])(War rior Op Med Cln Tm A Ad) TELE CONSULT [id number] Notes Entered by: ZOLTAN PEREZ 07 Oct 2019 1337 ------- ------- ------- ------- -- Prep Meds for Colonos copy - Schedul ed 11 October / [place] / - sgj CARLO YBARRA 10/06 Other Not Elsewhere Classified [address] [place] [address])(W arrior Op Med Cln Tm A Ad) [address] [place] [address])(War rior Op Med Cln Tm A Ad) TELE CONSULT [id number] Notes Entered by: GAVIN FALLON 13 Oct 2019 1121 ------- ------- ------- ------- -- Network Results Gastroe nterolo gy 0 JJ OCTOBERCAROLYNE 10/[address] [place] [address])(W arrior Op Med Cln Tm A Ad) [address] [place] [address])(War rior Op Med Cln Tm A Ad) TELE CONSULT [id number] Notes Entered by: FREDA MARTE 16 Oct 2019 0823 ------- ------- ------- ------- -- Network Results PATHOLO GY 0 JL OCTOBERCAROLYNE 10/[address] [place] [address] [facility])(W arrior Op Med Cln Tm A Ad) [address] [place] [address] [facility])(War rior Op Med Cln Tm A Ad) OUTPATIENT [id number] Bilater al Knee increas ing x 1 year REBECCA TOWNSEND 12/27 Released w/o Limitations [address] [place] [address] [facility])(W arrior Op Med Cln Tm A Ad) [address] [place] [address] [facility])(Phy sical Therapy) OUTPATIENT [id number] Pain in unspeci fied joint LILY LEARY 01/07 Released w/o Limitations [address] [place] [address] [facility])(P hysical Therapy ) [address] [place] [address] [facility])(War rior Op Med Cln Tm A Ad) TELE CONSULT [id number] Notes Entered by: ANGELES HUERTAS 27 Jan 2020 1428 ------- ------- ------- ------- -- delores calderón /marbin t/[phone] RAKESH Ramos 01/26 Immediate Referral [address] [place] [address] [facility])(W arrior Op Med Cln Tm A Ad) [address] [place] [address] [facility])(Phy sical Therapy) OUTPATIENT [id number] knees LILY LEARY 02/09 Released w/o Limitations [address] [place] [address] [facility])(P hysical Therapy ) [address] [place] [address] [facility])(Fam kenan Med Tm B Non-AD BCC) TELE CONSULT [id number] Notes Entered by: Emmanuelle SOUTH 16 Feb 2020 1449 ------- ------- ------- ------- -- Network results Gastroe nterolo gy 020 KJD CAROLYNE ZAMUDIO 02/[address] [place] [address] [facility])(F amily Med Tm B Non-AD BCC) [address] [place] [address] [facility])(Phy sical Therapy) OUTPATIENT [id number] MAO Valderrama 02/16 Released w/o Limitations [address] [place] [address] [facility])(P hysical Therapy ) [address] [place] [address] [facility])(Phy sical Therapy) OUTPATIENT [id number] MAO Valderrama M 02/23 Released w/o Limitations [address] [place] [address] [facility])(P hysical Therapy ) [address] [place] [address] [facility])(Phy sical Therapy) OUTPATIENT [id number] knees GOMEZ LANDAVERDE TROY 03/02 Released w/o Limitations [address] [place] [address] [facility])(P hysical Therapy ) [address] [place] [address] [facility]War rior Op Med Cln Tm A Ad) TELE CONSULT [id number] Notes Entered by: JOAN CHARLES R 08 Mar 2020 0956 ------- ------- ------- ------- -- Sx-Sore Throat/ Gilbert / CARLO YBARRA 03/08 Referred for Appointment [address] [place] [address] [facility]W arrior Op Med Cln Tm A Ad) [address] [place] [address] [facility]Chi ropractic ) OUTPATIENT [id number] F/U neck and back BRYSON MARCANO 03/09 Released w/o Limitations [address] [place] [address] [facility])(C hiropra ctic) [address] [place] [address] [facility])(Phy sical Therapy) OUTPATIENT [id number] MAO Valderrama 03/09 Released w/o Limitations [address] [place] [address] [facility])(P hysical Therapy ) [address] [place] [address] [facility])(Phy sical Therapy) OUTPATIENT [id number] knees LILY LEARY 03/11 Released w/o Limitations [address] [place] [address] [facility])(P hysical Therapy ) [address] [place] [address])(Phy sical Therapy) OUTPATIENT [id number] bx knee MAO HENAO 03/18 Released w/o Limitations [address] [place] [address] [facility])(P hysical Therapy ) [address] [place] [address])(Fam kenan Med Tm B Non-AD BCC) TELE CONSULT [id number] Notes Entered by: Emmanuelle SOUTH 23 Mar 2020 1401 ------- ------- ------- ------- -- Network results Allergy 020 TWAN CHA 03/[address] [place] [address])(F amily Med Tm B Non-AD BCC) [address] [place] [address])(Phy sical Therapy) OUTPATIENT [id number] bx knee GOMEZ LANDAVERDE TROY 03/25 Released w/o Limitations [address] [place] [address] [facility])(P hysical Therapy ) [address] [place] [address])(Phy sical Therapy) OUTPATIENT [id number] 4 bx knee pn CHAVA RIZVI 03/30 Released w/o Limitations [address] [place] [address] [facility])(P hysical Therapy ) [address] [place] [address])(War rior Op Med Cln Tm A Ad) TELE CONSULT [id number] Notes Entered by: JOAN CHARLES 01 Apr 2020 1359 ------- ------- ------- ------- -- Rx Rocio /Marbin t/ CARLO YBARRA 04/01 Medication Refill Forwarded [address] [place] [address])(W arrior Op Med Cln Tm A Ad) [address] [place] [address])(War rior Op Med Cln Tm A Ad) TELE CONSULT [id number] Notes Entered by: JOAN CHARLES 12 Apr 2020 0843 ------- ------- ------- ------- -- Delores Calderón /Marbin rojas/ CARLO BYARRA 04/12 Referred for Appointment [address] [place] [address])(W arrior Op Med Cln Tm A Ad) [address] [place] [address])(Phy sical Therapy) OUTPATIENT [id number] bx knee f/u DANIELE LEARYPEACE Peter 04/12 Released w/o Limitations [address] [place] [address])(P hysical Therapy ) [address] [place] [address])(Chi ropractic ) OUTPATIENT [id number] Dorsalg ia, unspeci fied. No Covid sx or exposur e BRYSON MARCANO R 04/27 Released w/o Limitations [address] [place] [address])(C hiropra ctic) [address] [place] [address])(Chi ropractic ) OUTPATIENT [id number] cervica l/LBP BRYSON MARCANO R 05/17 Released w/o Limitations [address] [place] [address])(C hiropra ctic) [address] [place] [address])(Chi ropractic ) OUTPATIENT [id number] neck pain BRYSON MARCANO R 05/26 Released w/o Limitations [address] [place] [address])(C hiropra ctic) [address] [place] [address])(War rior Op Med Cln Tm A Ad) TELE CONSULT [id number] Notes Entered by: ED DOMINGUEZ 09 Aug 2020 1140 ------- ------- ------- ------- -- KARO thomas/ [place] / [id number] CARLO YBARRA 08/09 Referred for Appointment [address] [place] [address])(W arrior Op Med Cln Tm A Ad) [address] [place] [address])(Bas e Operation al Medicine Clin) OUTPATIENT [id number] MHA MAO GONZALEZ Frances 08/15 Released w/o Limitations [address] [place] [address])(B ase Operati onal Medicin e Clin) [address] [place] [address])(War rior Op Med Cln Tm A Ad) OUTPATIENT [id number] Hand rash F2F DAVIDCOLIN REBECCA M 08/22 Released w/o Limitations [address] [place] [address])(W arrior Op Med Cln Tm A Ad) [address] [place] [address])(War rior Op Med Cln Tm A Ad) TELE CONSULT [id number] Notes Entered by: EVELYN TOWNSEND 24 Aug 2020 1604 ------- ------- ------- ------- -- f/u rash on hand REBECCA TOWNSEND 08/[address] [place] [address])(W arrior Op Med Cln Tm A Ad) [address] [place] [address])(War rior Op Med Cln Tm A Ad) TELE CONSULT [id number] Notes Entered by: ANGELES HUERTAS 10 Oct 2020 1355 ------- ------- ------- ------- -- SX-sx persist / rash on both hands/g irlanda/ [phone] CARLO Chavez 10/10 Referred for Appointment [address] [place] [address])(W arrior Op Med Cln Tm A Ad) [address] [place] [address])(David matology) OUTPATIENT [id number] Rash and other nonspec ific skin eruptio MARGUERITE Lemons 11/14 Released w/o Limitations [address] [place] [address])(Clarissa valencia) [address] [place] [address])(War rior Op Med Cln Tm A Ad) TELE CONSULT [id number] Notes Entered by: LUIS CARUSO 20 Dec 2020 1331 ------- ------- ------- ------- -- Network Results Allergy 021 BRENTON TOWNSEND REBECCA M 12/[address] [place] [address])(W arrior Op Med Cln Tm A Ad) [address] [place] [address])(War rior Op Med Cln Tm A Ad) TELE CONSULT [id number] Notes Entered by: ED DOMINGUEZ 27 Feb 2021 1202 ------- ------- ------- ------- -- Refer l Rocio / Gaviota/ [id number] CARLO YBARRA 02/27 Referred for Appointment [address] [place] [address])(W arrior Op Med Cln Tm A Ad) [address] [place] [address])(War rior Op Med Cln Tm A Ad) TELE CONSULT [id number] 5 Notes Entered by: Emmanuelle SOUTH 22 Mar 2021 112 ------- ------- ------- ------- -- Network results ALLERGY 021 LOUISE SCHERER 03/[address] [place] [address])(W arrior Op Med Cln Tm A Ad) [address] [place] [address])(War rior Op Med Cln Tm A Ad) TELE CONSULT [id number] Notes Entered by: NATHALIA LONGORIA 06 Apr 2021 141 ------- ------- ------- ------- -- Delores Rodriguez /Gaviota / CALRO YBARRA 04/06 Other Not Elsewhere Classified [address] [place] [address])(W arrior Op Med Cln Tm A Ad) [address] [place] [address])([facility]) OUTPATIENT [id number] REKHA Erwin 04/13 Released w/o Limitations [address] [place] [address])([facility]) [address] [place] [address] [facility])(War rior Op Med Cln Tm A Ad) OUTPATIENT [id number] FTF-Rec urring Vericos e vein issue in left leg-618 [phone] LOUISE GONZALEZ Rohith S 04/24 Released w/o Limitations [address] [place] [address] [facility])(W arrior Op Med Cln Tm A Ad) [address] [place] [address])([facility]) OUTPATIENT [id number] 2 F2F - f/u on safety counselor ing, REKHA SALGADO 05/10 Released w/o Limitations [address] [place] [address] [facility])([facility]) [address] [place] [address])(Chi ropractic ) OUTPATIENT [id number] 3 F/U Neck and Back pain BRYSON MARCANO 05/19 Released w/o Limitations [address] [place] [address])(C hiropra ctic) [address] [place] [address])(Chi ropractic ) OUTPATIENT [id number] neck/ba ck BRYSON MARCANO 06/08 Released w/o Limitations [address] [place] [address])(C hiropra ctic) [address] [place] [address])([facility]) TELE CONSULT [id number] Notes Entered by: PASTORA JACKSON 13 Jun 2021 1215 ------- ------- ------- ------- -- Chiro referra frances Walker - - tsg CARLO YBARRA 06/13 Referred for Appointment [address] [place] [address])(W arrior Op Med Cln Tm A Ad) [address] [place] [address])(War rior Op Med Cln Tm A Ad) TELE CONSULT [id number] Notes Entered by: MINNIE WAGGONER RET 04 Jul 2021 1435 ------- ------- ------- ------- -- Hematol ogjessica Refer l Request /Merline y/ RADHA MCCLENDON 07/04 Other Not Elsewhere Classified [address] [place] [address])(W arrior Op Med Cln Tm A Ad) [address] [place] [address])(War rior Op Med Cln Tm A Ad) TELE CONSULT [id number] Notes Entered by: Jenna FERNANDEZ 07 Jul 2021 0830 ------- ------- ------- ------- -- Network results Allergy 07/04/19 22 CARLO BRIGGS 07/07 Referred for Appointment [address] [place] [address])(W arrior Op Med Cln Tm A Ad) [address] [place] [address])(Aud iology Procedure s) OUTPATIENT [id number] SHPE SHANA SALAS 07/24 Released w/o Limitations [address] [place] [address])(A udiolog y Procedu res) [address] [place] [address])(Bas e Operation al Medicine Clin) OUTPATIENT [id number] A MAO GONZALEZ 08/04 Released w/o Limitations [address] [place] [address])(B ase Operati onal Medicin e Clin) [address] [place] [address])(War rior Op Med Cln Tm A Ad) OUTPATIENT [id number] [facility]07 Released w/o Limitations [address] [place] [address])(W arrior Op Med Cln Tm A Ad) [address] [place] [address])(War rior Op Med Cln Tm A Ad) TELE CONSULT [id number] 2 Notes Entered by: MINNIE WAGGONER RET 10 Aug 2021 1416 ------- ------- ------- ------- -- SX: right hand pain/Wo osley/6 [phone] CONSTANTINE PARMAR 08/10 Released to [facility] [address] [place] [address])(W arrior Op Med Cln Tm A Ad) [address] [place] [address])(Chi ropractic ) OUTPATIENT [id number] Dorsalg ia, unspeci fied KRYSBRYSON R 08/14 Released w/o Limitations [address] [place] [address])(C hiropra ctic) [address] [place] [address])(Bas e Operation al Medicine Clin) OUTPATIENT [id number] Notes Entered by: Rome PHILLIPS 17 Aug 2021 1456 ------- ------- ------- ------- -- FELY WARREN 08/17 Released w/o Limitations [address] [place] [address])(B ase Operati onal Medicin e Clin) [address] [place] [address])(War rior Op Med Cln Tm A Ad) OUTPATIENT [id number] finger pain f2f ANEL MONTENEGRO N 08/17 Released w/o Limitations [address] [place] [address])(W arrior Op Med Cln Tm A Ad) [address] [place] [address])(Chi ropractic ) OUTPATIENT [id number] F/U LBP BRYSON MARCANO R 09/05 Released w/o Limitations [address] [place] [address])(C hiropra ctic) [address] [place] [address])(Chi ropractic ) OUTPATIENT [id number] LBP BRYSON MARCANO R 09/18 Released w/o Limitations [address] [place] [address])(C hiropra ctic) [address] [place] [address])(War rior Op Med Cln Tm A Ad) TELE CONSULT [id number] 3 Notes Entered by: Emmanuelle SOUTH 28 Sep 2021 1328 ------- ------- ------- ------- -- Network results Hematol ogy/ Oncolog y 022 LOUISE SCHERER S 09/[address] [place] [address] [facility]W arrior Op Med Cln Tm A Ad) [address] [place] [address] Shiva [facility])(Chi ropractic ) OUTPATIENT [id number] [facility] BRYSON MARCANO R 09/28 Released w/o Limitations [address] [place] [address] Shiva [facility])(C hiropra ctic) [address] [place] [address] [facility])(Chi ropractic ) OUTPATIENT [id number] [facility] BRYSON MARCANO R 10/12 Released w/o Limitations [address] [place] [address] [facility])(C hiropra ctic) [address] [place] [address] [facility])(Chi ropractic ) OUTPATIENT [id number] [facility] BRYSON MARCANO R 10/24 Released w/o Limitations [address] [place] [address] [facility])(C hiropra ctic) [address] [place] [address])(Chi ropractic ) OUTPATIENT [id number] [facility] BRYSON MARCANO R 11/20 Released w/o Limitations [address] [place] [address] [facility]iva [facility])(C hiropra ctic) [address] [place] [address] [facility]iva [facility])(Chi ropractic ) OUTPATIENT [id number] [facility] BRYSON MARCANO R 12/01 Released w/o Limitations [address] [place] [address] Shiva [facility])(C hiropra ctic) [facility])(Chi ropractic ) OUTPATIENT [id number] [facility] BRYSON MARCANO R 12/15 Released w/o Limitations [address] [place] [address] [facility]C hiropra ctic) [facility]Chi ropractic ) OUTPATIENT [id number] [facility] BRYSON MARCANO R 12/27 Released w/o Limitations [address] [place] [address] [facility] [employer] [facility])(C hiropra ctic) [address] [place] [address] Shiva [facility]Chi ropractic ) OUTPATIENT [id number] f/u on chiro, BRYSON MARCANO 01/26 Released w/o Limitations [address] [place] [address] Group [facility] ([facility])(C hiropra ctic) [address] [place] [address] [facility]iva [facility]Chi ropractic ) OUTPATIENT [id number] back/ne ck BRYSON MARCANO R 02/07 Released w/o Limitations [address] [place] [address] Shiva [facility])(C hiropra ctic) [address] [place] [address] [facility]iva [facility]Fam kenan Med Tm B Non-AD BCC) TELE CONSULT [id number] Notes Entered by: Dennis WHITNEY 14 Feb 2022 0813 ------- ------- ------- ------- -- Referra l Allergy r/Savanna es/618. 641.343 4 SYLVESTER SALGUERO 02/14 Released to [facility] [address] [place] [address] [facility]F amily Med Tm B Non-AD BCC) [address] [place] [address] [facility]iva [facility]) OUTPATIENT [id number] F2F - Initial Consult ation HEMA GONZALEZ 05/18 Released w/o Limitations [address] [place] [address] Shiva [facility] ([facility])(S cott [facility]) [address] [place] [address] [facility]iva [facility]Fam kenan Med Tm B Non-AD BCC) OUTPATIENT [id number] F2F - F/U BHOP Start Depress ion Medicat ion GOMEZ CELIS 05/18 Released w/o Limitations [address] [place] [address] Shiva [facility] ([facility])(F amily Med Tm B Non-AD BCC) [address] [place] [address] [facility]iva [facility]Wyo tt [facility]) OUTPATIENT [id number] F/U Lumite Injector ing HEMA GONZALEZ 06/26 Released w/o Limitations [address] [place] [address] [facility]iva [facility] ([facility])(S cott [facility]) [address] [place] [address] [facility]iva [facility]Fam kenan Med Tm B Non-AD BCC) TELE CONSULT [id number] Notes Entered by: PASTORA JACKSON 13 Jul 2022 1601 ------- ------- ------- ------- -- Bridge Rx - OUT OF MEDS - Arcadio - - tsg JOSIAH DIANA 07/13 Medication Refill Forwarded [address] [place] [address] [facility]iva [facility]F amily Med Tm B Non-AD BCC) [address] [place] [address] Shiva B [facility]Fam kenan Med Tm B Non-AD BCC) OUTPATIENT [id number] F2F - medicat ion F/U LIAN GARLAND 07/25 Released w/o Limitations [address] [place] [address] Shiva JOR[facility]anny ([facility])(F amily Med Tm B Non-AD BCC) [address] [place] [address] Shiva B ([facility])(Fam kenan Med Tm B Non-AD BCC) TELE CONSULT [id number] 3 Notes Entered by: MAURICIO AUGUSTIN 23 Aug 2022 1434 ------- ------- ------- ------- -- Network results Allergy 022 and 022 LIAN RAMESH 08/[address] [place] [address] [facility]iva [facility] ([facility])(F amily Med Tm B Non-AD BCC) [address] [place] [address] [facility]Fam kenan Med Tm B Non-AD BCC) OUTPATIENT [id number] F2F - Medicat ion Review - LIAN GARLAND 08/28 Released w/o Limitations [address] [place] [address] Shiva JOR[facility]Franny ([facility])(F amily Med Tm B Non-AD BCC) [facility] Outpatient Encounter [id number] 07/15 [facility] Out[facility] Encounter [id number] [id number] 09/11 [facility] Outpatient Encounter [id number] 09/12 [facility] OFFICE O/P EST LOW 20 MIN 79645-7.65 [id number] Diagnos is: ICD-10- CM F32.A Depress ion, unspeci fied BRIANBEVA 09/18 [facility] Outpatient Encounter [id number] 09/22 [facility] PSYTX W PT 30 MINUTES 36029-7.65 [id number] 129 Diagnos is: ICD-10- CM F32.A Depress ion, unspeci fied DARWIN CORRALES 09/[address] 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 PSYTX W PT 30 MINUTES 00757-5.65 [id number] Diagnos is: ICD-10- CM F43.21 Adjustm ent disorde r with depress ed mood DARWIN CORRALES 11/07 [facility] PSYTX W PT 30 MINUTES 70116-7.65 [id number] 459 Diagnos is: ICD-10- CM F32.A Depress ion, unspeci fied DARWIN CORRALES 11/28 [facility] PSYTX W PT 30 MINUTES 74562-9.65 [id number] 225 Diagnos is: ICD-10- CM F33.0 Major depress maury disorde r, recurre nt, mild DARWIN CORRALES 12/10 [facility] PSYTX W PT 30 MINUTES 70121-4.65 [id number] 533 Diagnos is: ICD-10- CM F33.0 Major depress maury disorde r, recurre nt, mild SAVANNA,DARWIN BASS 12/16 [facility] PSYTX W PT 30 MINUTES 39576-0.65 [id number] 055 Diagnos is: ICD-10- CM F33.0 Major depress maury disorde r, recurre nt, mild SAVANNA,DARWIN BASS 12/30 [facility] Outpatient Encounter [id number] [id number] DARWIN CORRALES 01/14 [facility] Outpatient Encounter [id number] [id number] 01/14 [facility] Outpatient Encounter 23111-6.65 [id number] SAVANNADARWIN KALI 01/16 [facility] MANUAL THERAPY / [place] 04608-6.65 [id number] Diagnos is: ICD-10- CM M54.50 Low back pain, unspeci fied JAMES HAGEN TTHEW J 01/23 [facility] Outpatient Encounter [id number] [id number] JAMES HAGEN TTHEW J 01/23 [facility] PSYTX W PT 30 MINUTES 74310-2.65 [id number] 143 Diagnos is: ICD-10- CM F43.23 Adjustm ent disorde r with mixed anxiety and depress ed mood DARWIN CORRALES 01/30 [facility] PSYTX W PT 30 MINUTES 49352-5.65 [id number] 443 Diagnos is: ICD-10- CM F43.21 Adjustm ent disorde r with depress ed mood DARWIN CORRALES 02/[address] [facility] MANUAL THERAPY [place] 46259-5.65 [id number] 326 Diagnos is: ICD-10- CM M54.50 Low back pain, unspeci fied JAMES HAGEN TTHEW J 03/24 [facility] PSYTX W PT 30 MINUTES 29142-0.65 [id number] 270 Diagnos is: ICD-10- CM F32.A Depress ion, unspeci fied DARWIN CORRALES 04/[address] [facility] MANUAL THERAPY 1/ [place] [id number] [id number] 253 Diagnos is: ICD-10- CM M54.50 Low back pain, unspeci fied JAMES HAGEN TTHEW J 04/21 [facility] SELF CARE MNGMENT TRAINING 14935-8.65 [id number] 040 Diagnos is: ICD-10- CM M25.511 Pain in right shoulde r FLORENCE,BR EANNA 05/15 [facility] Outpatient Encounter [id number] [id number] 05/19 [facility] THERAPEUTI C EXERCISES 28488-7.65 [id number] Diagnos is: ICD-10- CM M25.511 Pain in right shoulde r FLORENCE,BR EANNA 05/29 [facility] PSYTX W PT 30 MINUTES 34475-8.65 [id number] 062 Diagnos is: ICD-10- CM F43.21 Adjustm ent disorde r with depress ed poli CORRALESDARWIN KALI 06/17 [facility] OFFICE O/P EST LOW 20 MIN 25898-7.65 [id number] 102 Diagnos is: ICD-10- CM M54.50 Low back pain, unspeci fied BEV TORRES HIDA 07/[address] [facility] NDL INSJ W/O NJX 3+ MUSC 79071-0.65 [id number] 085 Diagnos is: ICD-10- CM M54.50 Low back pain, unspeci fied JAMES HAGEN TTHEW J 08/04 [facility] PH1 ASSMT&MGMT NQHP 5-10 02659-4.65 [id number] 953 Diagnos is: ICD-10- CM Z63.0 Problem s in relatio nship with spouse or partner DARWIN CORRALES 08/04 [facility] Outpatient Encounter [id number] [id number] 08/04 [facility] [id number]-375 th [facility]-[place] Visit [id number] 08/04 Discharge Disposition: Home or Self Care 0055C-3 75th [facility]- [facility] PSYTX W PT 30 MINUTES 69664-4.65 [id number] Diagnos is: ICD-10- CM Z63.0 Problem s in relatio nship with spouse or partner DARWIN CORRALES 08/06 [facility] PSYTX W PT 30 MINUTES 74487-6.65 [id number] 056 Diagnos is: ICD-10- CM F43.20 Adjustm ent disorde r, unspeci fied DARWIN CORRALES 08/20 [facility] Outpatient Encounter [id number] [id number] BUSTER,LUPE CASTILLO E 08/21 [facility] OT EVAL LOW COMPLEX 30 MIN 05062-3.65 [id number] Diagnos is: ICD-10- CM M25.531 Pain in right wrist DEPRIMO,CL AIRE M 08/25 [facility] Outpatient Encounter [id number] [id number] 08/26 [facility] PSYTX W PT 60 MINUTES 54176-2.65 [id number] 542 Diagnos is: ICD-10- CM F32.A Depress ion, unspeci fied BERTRAM BOOH Dennis 08/27 [facility] Outpatient Encounter 35525-6.65 [id number] AUGUSTO ACE 08/31 [facility] Outpatient Encounter 74739-4.65 [id number] 09/02 [facility] NDL INSJ W/O NJX 3+ MUSC 47149-6.65 [id number] 952 Diagnos is: ICD-10- CM M54.50 Low back pain, unspeci smith HAGEN MA TTHEW J 09/14 [facility] OT RE-EVAL EST PLAN CARE 25058-9.65 [id number] 389 Diagnos is: ICD-10- CM M25.531 Pain in right wrist DEPRIMO,CL AIRE M 09/17 [facility] Outpatient Encounter [id number] [id number] 09/18 [facility] OT RE-EVAL EST PLAN CARE 37312-8.65 [id number] Diagnos is: ICD-10- CM M25.531 Pain in right wrist DEPRIMO,CL AIRE M 10/[address] [facility] MANUAL THERAPY 1/ [place] 18735-8.65 [id number] 460 Diagnos is: ICD-10- CM M54.2 Cervica DENA Owens ON G 10/20 [facility] Outpatient Encounter [id number] [id number] TALIA PETTY 10/22 [facility] MECHANICAL TRACTION THERAPY 25872-7.65 [id number] Diagnos is: ICD-10- CM M54.2 Cervica BOB Lewis EAZACHERYA 10/23 [facility] N [facility] OFFICE O/P EST MOD 30 MIN 96897-6.65 [id number] 873 Diagnos is: ICD-10- CM M25.531 Pain in right wrist BEV TORRES 10/29 [facility] N [facility] Outpatient Encounter 83018-5.65 [id number] 10/30 [facility] N [facility] Outpatient Encounter [id number] [id number] 11/04 [facility] OT RE-EVAL EST PLAN CARE 12744-4.65 [id number] Diagnos is: ICD-10- CM M25.531 Pain in right wrist CELIA HUGGINS 11/10 [facility] Outpatient Encounter [id number] [id number] 11/17 [facility] FAMILY PSYTX W/PT 50 MIN 77509-6.65 [id number] Diagnos is: ICD-10- CM Z63.0 Problem s in relatio nship with spouse or partner AVERY DAY 11/30 [facility] Procedures Combined list of: 1) Procedures from Department of Veterans Affairs facilities going back up to thelast 18 months, not all VA non-surgical procedures are included; 2) All procedures from the Department of Defense facilities. Procedure Procedure Type Code Date Perfomer Comments Sourc e No data available for this section [facility] HEALTH BEHAVIOR INTERVENTION, INDIVIDUAL, [id number]; INITIAL 30 MINUTES 06/26 DoD HEALTH BEHAVIOR ASSESSMENT, OR RE-ASSESSMENT (IE, HEALTH-FOCUSED CLINICAL INTERVIEW, BEHAVIORAL OBSERVATIONS, CLINICAL DECISION MAKING) 05/18 DoD TELE ASSESS & MGT SRV PROV QUAL NONPHYS HLTH CARE PRO TO EST PAT,PARENT,GUARD NOT ORIG REL ASSESS & MGT SRV PROV W/IN PREV 7 DAYS NOR LEAD ASSESS & MGT SRV/PX W/IN NXT 24H/SOON APT; 11-20 MIN MED DIS 02/14 DoD APPLICATION OF A MODALITY TO 1 OR MORE AREAS; HOT OR COLD PACKS 02/07 DoD APPLICATION OF A MODALITY TO 1 OR MORE AREAS; HOT OR COLD PACKS 01/26 DoD APPLICATION OF A MODALITY TO 1 OR MORE AREAS; HOT OR COLD PACKS 12/27 DoD CHIROPRACTIC MANIPULATIVE TREATMENT (CMT); SPINAL, 3-4 [place] 12/15 DoD APPLICATION OF A MODALITY TO 1 OR MORE AREAS; HOT OR COLD PACKS 12/01 DoD CHIROPRACTIC MANIPULATIVE TREATMENT (CMT); SPINAL, 3-4 [place] 11/20 DoD APPLICATION OF A MODALITY TO 1 OR MORE AREAS; HOT OR COLD PACKS 10/24 DoD APPLICATION OF A MODALITY TO 1 OR MORE AREAS; ELECTRICAL STIMULATION (UNATTENDED) 10/12 DoD THERAPEUTIC PROCEDURE, 1 OR MORE AREAS, EACH 15 MINUTES; MASSAGE, INCLUDING EFFLEURAGE, PETRISSAGE AND/OR TAPOTEMENT (STROKING, COMPRESSION, PERCUSSION) 09/28 DoD APPLICATION OF A MODALITY TO 1 OR MORE AREAS; HOT OR COLD PACKS 09/18 DoD CHIROPRACTIC MANIPULATIVE TREATMENT (CMT); SPINAL, 3-4 [place] 09/05 DoD THERAPEUTIC PROCEDURE, 1 OR MORE AREAS, EACH 15 MINUTES; THERAPEUTIC EXERCISES TO DEVELOP STRENGTH AND ENDURANCE, RANGE OF MOTION AND FLEXIBILITY 08/14 DoD TELE ASSESS & MGT SRV PROV QUAL NONPHYS HLTH CARE PRO TO EST PAT,PARENT,GUARD NOT ORIG REL ASSESS & MGT SRV PROV W/IN PREV 7 DAYS NOR LEAD ASSESS & MGT SRV/PX W/IN NXT 24 HR/SOON APT;5-10 MIN MED DIS 08/10 DoD PURE TONE AUDIOMETRY (THRESHOLD), AUTOMATED; AIR ONLY 07/24 DoD TELE ASSESS & MGT SRV PROV QUAL NONPHYS HLTH CARE PRO TO EST PAT,PARENT,GUARD NOT ORIG REL ASSESS & MGT SRV PROV W/IN PREV 7 DAYS NOR LEAD ASSESS & MGT SRV/PX W/IN NXT 24 HR/SOON APT;5-10 MIN MED DIS 06/13 [facility] CHIROPRACTIC MANIPULATIVE TREATMENT (CMT); SPINAL, 3-4 [place] 06/08 [facility] THERAPEUTIC PROCEDURE, 1 OR MORE AREAS, EACH 15 MINUTES; MASSAGE, INCLUDING EFFLEURAGE, PETRISSAGE AND/OR TAPOTEMENT (STROKING, COMPRESSION, PERCUSSION) 05/19 [facility] HEALTH BEHAVIOR ASSESSMENT, OR RE-ASSESSMENT (IE, HEALTH-FOCUSED CLINICAL INTERVIEW, BEHAVIORAL OBSERVATIONS, CLINICAL DECISION MAKING) 05/10 [facility] HEALTH BEHAVIOR INTERVENTION, INDIVIDUAL, [id number]; INITIAL 30 MINUTES 04/13 DoD TELE ASSESS & MGT SRV PROV QUAL NONPHYS HLTH CARE PRO TO EST PAT,PARENT,GUARD NOT ORIG REL ASSESS & MGT SRV PROV W/IN PREV 7 DAYS NOR LEAD ASSESS & MGT SRV/PX W/IN NXT 24 HR/SOON APT;5-10 MIN MED DIS 03/16 DoD TELE ASSESS & MGT SRV PROV QUAL NONPHYS HLTH CARE PRO TO EST PAT,PARENT,GUARD NOT ORIG REL ASSESS & MGT SRV PROV W/IN PREV 7 DAYS NOR LEAD ASSESS & MGT SRV/PX W/IN NXT 24 HR/SOON APT;5-10 MIN MED DIS 02/27 DoD TELE ASSESS & MGT SRV PROV QUAL NONPHYS HLTH CARE PRO TO EST PAT,PARENT,GUARD NOT ORIG REL ASSESS & MGT SRV PROV W/IN PREV 7 DAYS NOR LEAD ASSESS & MGT SRV/PX W/IN NXT 24 HR/SOON APT;5-10 MIN MED DIS 10/10 DoD ADMINISTRATION OF PATIENT-FOCUSED HEALTH RISK ASSESSMENT INSTRUMENT (EG, HEALTH HAZARD APPRAISAL) WITH SCORING AND DOCUMENTATION, PER STANDARDIZED INSTRUMENT 08/23 DoD ADMINISTRATION OF PATIENT-FOCUSED HEALTH RISK ASSESSMENT INSTRUMENT (EG, HEALTH HAZARD APPRAISAL) WITH SCORING AND DOCUMENTATION, PER STANDARDIZED INSTRUMENT 08/15 DoD TELE ASSESS & MGT SRV PROV QUAL NONPHYS HLTH CARE PRO TO EST PAT,PARENT,GUARD NOT ORIG REL ASSESS & MGT SRV PROV W/IN PREV 7 DAYS NOR LEAD ASSESS & MGT SRV/PX W/IN NXT 24 HR/SOON APT;5-10 MIN MED DIS 08/09 DoD APPLICATION OF A MODALITY TO 1 OR MORE AREAS; ELECTRICAL STIMULATION (UNATTENDED) 05/26 DoD THERAPEUTIC PROCEDURE, 1 OR MORE AREAS, EACH 15 MINUTES; THERAPEUTIC EXERCISES TO DEVELOP STRENGTH AND ENDURANCE, RANGE OF MOTION AND FLEXIBILITY 05/17 DoD MANUAL THERAPY TECHNIQUES (EG, MOBILIZATION/ MANIPULATION, MANUAL LYMPHATIC DRAINAGE, MANUAL TRACTION), 1 OR MORE REGIONS, EACH 15 MINUTES 04/27 DoD THERAPEUTIC PROCEDURE, 1 OR MORE AREAS, EACH 15 MINUTES; THERAPEUTIC EXERCISES TO DEVELOP STRENGTH AND ENDURANCE, RANGE OF MOTION AND FLEXIBILITY 04/12 DoD TELE ASSESS & MGT SRV PROV QUAL NONPHYS HLTH CARE PRO TO EST PAT,PARENT,GUARD NOT ORIG REL ASSESS & MGT SRV PROV W/IN PREV 7 DAYS NOR LEAD ASSESS & MGT SRV/PX W/IN NXT 24 HR/SOON APT;5-10 MIN MED DIS 04/12 DoD TELE ASSESS & MGT SRV PROV QUAL NONPHYS HLTH CARE PRO TO EST PAT,PARENT,GUARD NOT ORIG REL ASSESS & MGT SRV PROV W/IN PREV 7 DAYS NOR LEAD ASSESS & MGT SRV/PX W/IN NXT 24 HR/SOON APT;5-10 MIN MED DIS 04/01 DoD STRAPPING; KNEE 03/30 DoD THERAPEUTIC PROCEDURE, 1 OR MORE AREAS, EACH 15 MINUTES; THERAPEUTIC EXERCISES TO DEVELOP STRENGTH AND ENDURANCE, RANGE OF MOTION AND FLEXIBILITY 03/25 DoD STRAPPING; KNEE 03/18 DoD THERAPEUTIC PROCEDURE, 1 OR MORE AREAS, EACH 15 MINUTES; THERAPEUTIC EXERCISES TO DEVELOP STRENGTH AND ENDURANCE, RANGE OF MOTION AND FLEXIBILITY 03/11 DoD STRAPPING; KNEE 03/09 DoD CHIROPRACTIC MANIPULATIVE TREATMENT (CMT); SPINAL, 3-4 REGIONS 03/09 DoD TELE ASSESS & MGT SRV PROV QUAL NONPHYS HLTH CARE PRO TO EST PAT,PARENT,GUARD NOT ORIG REL ASSESS & MGT SRV PROV W/IN PREV 7 DAYS NOR LEAD ASSESS & MGT SRV/PX W/IN NXT 24 HR/SOON APT;5-10 MIN MED DIS 03/08 DoD THERAPEUTIC PROCEDURE, 1 OR MORE AREAS, EACH 15 MINUTES; THERAPEUTIC EXERCISES TO DEVELOP STRENGTH AND ENDURANCE, RANGE OF MOTION AND FLEXIBILITY 03/02 DoD STRAPPING; KNEE 02/23 DoD STRAPPING; KNEE 02/16 DoD THERAPEUTIC PROCEDURE, 1 OR MORE AREAS, EACH 15 MINUTES; THERAPEUTIC EXERCISES TO DEVELOP STRENGTH AND ENDURANCE, RANGE OF MOTION AND FLEXIBILITY 02/09 DoD THERAPEUTIC PROCEDURE, 1 OR MORE AREAS, EACH 15 MINUTES; THERAPEUTIC EXERCISES TO DEVELOP STRENGTH AND ENDURANCE, RANGE OF MOTION AND FLEXIBILITY 01/07 DoD WAIVER SERVICES; NOT OTHERWISE SPECIFIED (NOS) 12/28 DoD TELE ASSESS & MGT SRV PROV QUAL NONPHYS HLTH CARE PRO TO EST PAT,PARENT,GUARD NOT ORIG REL ASSESS & MGT SRV PROV W/IN PREV 7 DAYS NOR LEAD ASSESS & MGT SRV/PX W/IN NXT 24 HR/SOON APT;5-10 MIN MED DIS 10/06 DoD BRIEF COMM TECH-BASE SERV,E.G. VIRT CHK-IN,BY PHYS/OTH QUAL HCP,RPT E&M SERV,PROV TO EST PT,NOT ORIG FRM REL E/M SERV PROV W/IN PREV 7DAY NOR LEAD TO E/M SRV/PX W/IN NEXT 24HR/SOON STEPHANIE; 5-10 MIN DISC 09/28 DoD THERAPEUTIC PROCEDURE, 1 OR MORE AREAS, EACH 15 MINUTES; MASSAGE, INCLUDING EFFLEURAGE, PETRISSAGE AND/OR TAPOTEMENT (STROKING, COMPRESSION, PERCUSSION) 08/20 DoD APPLICATION OF A MODALITY TO 1 OR MORE AREAS; HOT OR COLD PACKS 08/13 DoD APPLICATION OF A MODALITY TO 1 OR MORE AREAS; ELECTRICAL STIMULATION (UNATTENDED) 08/05 DoD CHIROPRACTIC MANIPULATIVE TREATMENT (CMT); SPINAL, 3-4 REGIONS 07/31 DoD APPLICATION OF A MODALITY TO 1 OR MORE AREAS; HOT OR COLD PACKS 07/13 DoD CHIROPRACTIC MANIPULATIVE TREATMENT (CMT); SPINAL, 3-4 REGIONS 07/06 DoD APPLICATION OF A MODALITY TO 1 OR MORE AREAS; HOT OR COLD PACKS 06/26 DoD APPLICATION OF A MODALITY TO 1 OR MORE AREAS; ELECTRICAL STIMULATION (UNATTENDED) 06/23 DoD CHIROPRACTIC MANIPULATIVE TREATMENT (CMT); SPINAL, 3-4 REGIONS 06/09 DoD CHIROPRACTIC MANIPULATIVE TREATMENT (CMT); SPINAL, 3-4 REGIONS 05/12 DoD THERAPEUTIC PROCEDURE, 1 OR MORE AREAS, EACH 15 MINUTES; THERAPEUTIC EXERCISES TO DEVELOP STRENGTH AND ENDURANCE, RANGE OF MOTION AND FLEXIBILITY 05/05 [facility] DETERMINATION OF REFRACTIVE STATE 04/17 DoD ONLINE ASSESS &MANAG SERV PROVIDE,A QUAL NONPHYS HCP TO AN ESTABLISHED PAT/GUARDIAN,NOT ORIGINAT FRM RELAT ASSESS &MANAG SERV PROVIDE W/IN THE PREV 7 DAYS,USE THE Frequent Browser/[employer] NETWORK 04/17 DoD TELE ASSESS & MGT SRV PROV QUAL NONPHYS HLTH CARE PRO TO EST PAT,PARENT,GUARD NOT ORIG REL ASSESS & MGT SRV PROV W/IN PREV 7 DAYS NOR LEAD ASSESS & MGT SRV/PX W/IN NXT 24 HR/SOON APT;5-10 MIN MED DIS 02/10 DoD TELE ASSESS & MGT SRV PROV QUAL NONPHYS HLTH CARE PRO TO EST PAT,PARENT,GUARD NOT ORIG REL ASSESS & MGT SRV PROV W/IN PREV 7 DAYS NOR LEAD ASSESS & MGT SRV/PX W/IN NXT 24 HR/SOON APT;5-10 MIN MED DIS 12/08 DoD TELE ASSESS & MGT SRV PROV QUAL NONPHYS HLTH CARE PRO TO EST PAT,PARENT,GUARD NOT ORIG REL ASSESS & MGT SRV PROV W/IN PREV 7 DAYS NOR LEAD ASSESS & MGT SRV/PX W/IN NXT 24 HR/SOON APT;5-10 MIN MED DIS 11/13 DoD PSYCHIATRIC EVALUATION OF HOSPITAL RECORDS, OTHER PSYCHIATRIC REPORTS, PSYCHOMETRIC AND/OR PROJECTIVE TESTS, AND OTHER ACCUMULATED DATA FOR MEDICALDIAGNOSTIC PURPOSES 03/05 DoD PSYCHIATRIC EVALUATION OF HOSPITAL RECORDS, OTHER PSYCHIATRIC REPORTS, PSYCHOMETRIC AND/OR PROJECTIVE TESTS, AND OTHER ACCUMULATED DATA FOR MEDICALDIAGNOSTIC PURPOSES 02/04 DoD APPLICATION OF A MODALITY TO 1 OR MORE AREAS; HOT OR COLD PACKS 10/16 DoD APPLICATION OF A MODALITY TO 1 OR MORE AREAS; ELECTRICAL STIMULATION (UNATTENDED) 08/27 DoD APPLICATION OF A MODALITY TO 1 OR MORE AREAS; ELECTRICAL STIMULATION (UNATTENDED) 08/15 DoD APPLICATION OF A MODALITY TO 1 OR MORE AREAS; HOT OR COLD PACKS 07/24 [facility] APPLICATION OF A MODALITY TO 1 OR MORE AREAS; ELECTRICAL STIMULATION (UNATTENDED) 07/19 [facility] APPLICATION OF A MODALITY TO 1 OR MORE AREAS; HOT OR COLD PACKS 07/12 [facility] THERAPEUTIC PROCEDURE,1 OR MORE AREAS,EACH 15 MINUTES;NEUROMUSCULA R REEDUCATION OF MOVEMENT,BALANCE,TELECOMMUNICATIONS CONSULTANT RDINATION,KINESTHETI C SENSE,POSTURE,AND/OR PROPRIOCEPTION FOR SITTING AND/OR STANDING ACTIVITIES 06/13 [facility] INCISION AND DRAINAGE, DEEP ABSCESS, BURSA, OR HEMATOMA, THIGH OR KNEE REGION 05/31 [facility] INTRODUCTION OF NEEDLE OR INTRACATHETER, VEIN 01/30 [facility] INCISION AND DRAINAGE OF ABSCESS (EG, CARBUNCLE, SUPPURATIVE HIDRADENITIS, CUTANEOUS OR SUBCUTANEOUS ABSCESS, CYST, FURUNCLE, OR PARONYCHIA); SIMPLE OR SINGLE 01/28 [facility] HANDLING AND/OR CONVEYANCE OF SPECIMEN FOR TRANSFER FROM THE OFFICE TO A LABORATORY 10/29 [facility] POSTOPERATIVE FOLLOW-UP VISIT, NORMALLY INCLUDED IN THE SURGICAL PACKAGE, INDICATE THAT EVALUATION & MANAGEMENT SERVICE WAS PERFORMED DURING A POSTOPERATIVE PERIOD REASON RELATED ORIGINAL PROCEDURE 08/19 [facility] VASECTOMY, UNILATERAL OR BILATERAL (SEPARATE PROCEDURE), INCLUDING POSTOPERATIVE SEMEN EXAM(S) 08/11 [facility] VIS FUNCT SCREEN,AUTOMAT/SEMI- AUTOMAT BILAT QUANT DETERM VISUAL ACUITY,OCULAR ALIGN,COLOR VISION,PSEUDOISOCHRO MAT PLATES,& FIELD VIS (MAY INC ALL/SOME SCRN DETERM FOR CONTRAST SENSITIV,VIS UND GLARE) 08/27 [facility] BRIEF EMOTIONAL/BEHAVIORAL ASSESSMENT (EG, DEPRESSION INVENTORY, ATTENTION-DEFICIT/HY PERACTIVITY DISORDER [ADHD] SCALE), WITH SCORING AND DOCUMENTATION, PER STANDARDIZED INSTRUMENT 02/27 [facility] ADMINISTRATION OF PATIENT-FOCUSED HEALTH RISK ASSESSMENT INSTRUMENT (EG, HEALTH HAZARD APPRAISAL) WITH SCORING AND DOCUMENTATION, PER STANDARDIZED INSTRUMENT 02/27 [facility] FOOT INSERT, REMOVABLE, MOLDED TO PATIENT MODEL, LONGITUDINAL/ METATARSAL SUPPORT, EACH 02/05 [facility] PURE TONE AUDIOMETRY (THRESHOLD), AUTOMATED; AIR ONLY 02/04 [facility] PURE TONE AUDIOMETRY (THRESHOLD), AUTOMATED; AIR ONLY 01/30 DoD APPLICATION OF A MODALITY TO 1 OR MORE AREAS; TRACTION, MECHANICAL 05/08 DoD APPLICATION OF A MODALITY TO 1 OR MORE AREAS; TRACTION, MECHANICAL 05/01 DoD APPLICATION OF A MODALITY TO 1 OR MORE AREAS; TRACTION, MECHANICAL 04/26 DoD APPLICATION OF A MODALITY TO 1 OR MORE AREAS; TRACTION, MECHANICAL 04/15 DoD APPLICATION OF A MODALITY TO 1 OR MORE AREAS; TRACTION, MECHANICAL 04/02 DoD APPLICATION OF A MODALITY TO 1 OR MORE AREAS; TRACTION, MECHANICAL 03/01 DoD APPLICATION OF A MODALITY TO 1 OR MORE AREAS; TRACTION, MECHANICAL 02/26 DoD APPLICATION OF A MODALITY TO 1 OR MORE AREAS; TRACTION, MECHANICAL 02/15 DoD APPLICATION OF A MODALITY TO 1 OR MORE AREAS; TRACTION, MECHANICAL 02/04 DoD APPLICATION OF A MODALITY TO 1 OR MORE AREAS; TRACTION, MECHANICAL 01/30 DoD APPLICATION OF A MODALITY TO 1 OR MORE AREAS; TRACTION, MECHANICAL 01/15 DoD APPLICATION OF A MODALITY TO 1 OR MORE AREAS; TRACTION, MECHANICAL 01/11 DoD APPLICATION OF A MODALITY TO 1 OR MORE AREAS; TRACTION, MECHANICAL 01/08 DoD APPLICATION OF A MODALITY TO 1 OR MORE AREAS; TRACTION, MECHANICAL 01/02 DoD APPLICATION OF A MODALITY TO 1 OR MORE AREAS; TRACTION, MECHANICAL 12/26 DoD APPLICATION OF A MODALITY TO 1 OR MORE AREAS; TRACTION, MECHANICAL 12/24 DoD APPLICATION OF A MODALITY TO 1 OR MORE AREAS; TRACTION, MECHANICAL 12/18 DoD APPLICATION OF A MODALITY TO 1 OR MORE AREAS; TRACTION, MECHANICAL 11/28 DoD APPLICATION OF A MODALITY TO 1 OR MORE AREAS; TRACTION, MECHANICAL 11/08 DoD HEALTH&BEHAV ASSESSMENT (EG, HEALTH-FOC CLINICAL INTERVIEW, BEHAVIORAL OBSERVATIONS, PSYCHOPHYSICOLOGICAL MONITOR, HEALTH-ORIENT QUESTIONNAIRES), EA 15 MIN [id number] W THE PATIENT; INIT ASSESSMENT 11/02 DoD APPLICATION OF A MODALITY TO 1 OR MORE AREAS; HOT OR COLD PACKS 11/01 DoD APPLICATION OF A MODALITY TO 1 OR MORE AREAS; HOT OR COLD PACKS 10/29 DoD APPLICATION OF A MODALITY TO 1 OR MORE AREAS; TRACTION, MECHANICAL 10/25 DoD THERAPEUTIC PROCEDURE, 1 OR MORE AREAS, EACH 15 MINUTES; THERAPEUTIC EXERCISES TO DEVELOP STRENGTH AND ENDURANCE, RANGE OF MOTION AND FLEXIBILITY 10/23 DoD APPLICATION OF A MODALITY TO 1 OR MORE AREAS; TRACTION, MECHANICAL 10/18 DoD APPLICATION OF A MODALITY TO 1 OR MORE AREAS; TRACTION, MECHANICAL 10/15 DoD THERAPEUTIC PROCEDURE, 1 OR MORE AREAS, EACH 15 MINUTES; THERAPEUTIC EXERCISES TO DEVELOP STRENGTH AND ENDURANCE, RANGE OF MOTION AND FLEXIBILITY 10/08 [facility] PURE TONE AUDIOMETRY (THRESHOLD), AUTOMATED; AIR ONLY 10/04 [facility] HEALTH&BEHAV ASSESSMENT (EG, HEALTH-FOC CLINICAL INTERVIEW, BEHAVIORAL OBSERVATIONS, PSYCHOPHYSICOLOGICAL MONITOR, HEALTH-ORIENT QUESTIONNAIRES), EA 15 MIN [id number] W THE PATIENT; INIT ASSESSMENT 06/24 [facility] PURE TONE AUDIOMETRY (THRESHOLD); AIR ONLY 06/23 [facility] PURE TONE AUDIOMETRY (THRESHOLD); AIR ONLY 09/20 [facility] DETERMINATION OF REFRACTIVE STATE 12/23 [facility] THERAPEUTIC PROCEDURE, 1 OR MORE AREAS, EACH 15 MINUTES; THERAPEUTIC EXERCISES TO DEVELOP STRENGTH AND ENDURANCE, RANGE OF MOTION AND FLEXIBILITY 08/21 [facility] INJECTION, CEFTRIAXONE SODIUM, PER 250 MG 03/07 [facility] PSYCHIATRIC EVALUATION OF HOSPITAL RECORDS, OTHER PSYCHIATRIC REPORTS, PSYCHOMETRIC AND/OR PROJECTIVE TESTS, AND OTHER ACCUMULATED DATA FOR MEDICALDIAGNOSTIC PURPOSES 09/28 [facility] Modalities Electrical Stimulation Unattended Modalities Electrical Stimulation Unattended 67619 08/12 ISABELLE ISABEL Modalities Heat Hot Packs Modalities Heat Hot Packs 69212 08/12 ISABELLE ISABEL Chiropractic Manip Treatmt (CMT) Spinal One To Two Regions Chiropractic Manip Treatmt (CMT) Spinal One To Two Regions 00976 08/12 ISABELLE ISABEL Modalities Heat Hot Packs Modalities Heat Hot Packs 94789 07/25 ISABELLE ISABEL Modalities Electrical Stimulation Unattended Modalities Electrical Stimulation Unattended 15906 07/25 ISABELLE ISABEL Chiropractic Manip Treatmt (CMT) Spinal One To Two Regions Chiropractic Manip Treatmt (CMT) Spinal One To Two Regions 36346 07/25 ISABELLE ISABEL Physical Therapy Neuromuscular Re-education Physical Therapy Neuromuscular Re-education 52223 06/14 DB DANG Physical Therapy: ___ Se ion Segments, 15 Minutes Each Physical Therapy: ___ Session Segments, 15 Minutes Each 44372 06/14 DB DANG Physical Medicine Physical Therapy Evaluation Physical Medicine Physical Therapy Evaluation 12783 06/14 DB DANG Knee Incision And Drainage Infected Bursa Knee Incision And Drainage Infected Bursa 90960 05/31 JENAE RAMIREZ [facility] Incision And Drainage Of Skin Absce Incision And Drainage Of Skin Abscess 96147 01/28 DIAN MONTENEGRO [facility] -Supervised Specimen Handling / Transfer: Office To Lab -Supervised Specimen Handling / Transfer: Office To Lab 97464 10/29 ROCHELLE PETTY Venipuncture Venipuncture 23787 10/29 ROCHELLE PETTY [facility] Postoperative Visit, Without Charge Postoperative Visit, Without Charge 00182 08/19 EZEKIEL JACOBS Surgery Of Male Genitalia Vasectomy Surgery Of Male Genitalia Vasectomy 01892 08/11 EZEKIEL JACOBS [facility] Visual Function Screening Visual Function Screening 74548 08/27 JEN KELLER Non-Physician Phone Call To Patient/Provider Brief (5-10min) Non-Physician Phone Call To Patient/Provider Brief (5-10min) 80915 12/09 CARLO YBARRA Non-Physician Phone Call To Patient/Provider Brief (5-10min) Non-Physician Phone Call To Patient/Provider Brief (5-10min) 86963 11/14 CARLO YBARRA Internet Med Svc Qual Nonphys Healthcare Prof Estab Patient Internet Med Sv Qual Nonps Healthcare Prof Estab Patient 70224 02/27 THOMAS MALCOLM [facility] Foot insert, removable, molded to patient model, longitudinal/metatar colt support, each 02/05 ZIYAD LUNDBERG [facility] Physical Therapy Education Orthotics Training Initial 15 Min Physical Therapy Education Orthotics Training Initial 15 Min 40754 02/05 ZIYAD LUNDBERG Physical Therapy Gait Training Physical Therapy Gait Training 28722 02/05 ZIYAD LUNDBERG Range Of Motion Evaluation Of Extremity Range Of Motion Evaluation Of Extremity 91703 02/05 ZIYAD LUNDBERG Threshold Audiogram (Pure Tone) Automated Threshold Audiogram (Pure Tone) Automated 0208T 02/04 JANAK RIZO [facility] Threshold Audiogram (Pure Tone) Automated Threshold Audiogram (Pure Tone) Automated 0208T 01/30 JANAK RIZO DoD Modalities Traction Modalities Traction 30098 05/09 LEONILABUNNY COTE DoD Modalities Traction Modalities Traction 71665 05/01 CANDIDO MEAD DoD Modalities Traction Modalities Traction 79270 04/26 TAGCANDIDO CASTILLO DoD Modalities Traction Modalities Traction 84297 04/15 LEONILABUNNY COTE DoD Traction Cervical Traction Cervical 03959 04/03 ISSAC TEIXEIRA DoD Mobilization Soft Ti ue Mobilization Soft Tissue 82093 04/03 PUNEETISSAC BROWN Naomi Physical Medicine Physical Therapy Re-Evaluation Physical Medicine Physical Therapy Re-Evaluation 04007 04/03 ISSAC TEIXEIRA DoD Modalities Traction Modalities Traction 17263 03/01 CANDIDO MEAD DoD Modalities Traction Modalities Traction 53543 02/26 CANDIDO MEAD DoD Modalities Traction Modalities Traction 29591 02/15 CANDIDO MEAD DoD Modalities Traction Modalities Traction 76013 02/05 LEONILABUNNY COTE DoD Physical Therapy Mobilization Joint Physical Therapy Mobilization Joint 74888 01/30 ISSAC TEIXEIRA DoD Traction Cervical Traction Cervical 68664 01/30 PUNEETISSAC Naomi Physical Medicine Physical Therapy Re-Evaluation Physical Medicine Physical Therapy Re-Evaluation 83905 01/30 ISSAC TEIXEIRA DoD Modalities Traction Modalities Traction 73294 01/15 BUNNY KEEN DoD Modalities Traction Modalities Traction 26978 01/11 LEONILABUNNY COTE DoD Modalities Traction Modalities Traction 65408 01/08 LEONILABUNNY MEADOWS DoD Modalities Traction Modalities Traction 77607 01/02 LEONILABUNNY MEADOWS DoD Modalities Traction Modalities Traction 69241 12/26 BUNNY KEEN DoD Modalities Traction Modalities Traction 54569 12/24 LEONILABUNNY MEADOWS DoD Modalities Traction Modalities Traction 52054 12/17 LEONILABUNNY MEADOWS DoD Modalities Traction Modalities Traction 24998 11/28 CANDIDO MEAD DoD Traction Cervical Traction Cervical 19412 11/12 ISSAC TEIXEIRA [facility] Physical Therapy Mobilization Joint Physical Therapy Mobilization Joint 85180 11/12 ISSAC TEIXEIRA [facility] Physical Medicine Physical Therapy Re-Evaluation Physical Medicine Physical Therapy Re-Evaluation 40707 11/12 ISSAC TEIXEIRA [facility] Health And Behav A e mt Each 15 Min Initial A e ment Health And Behav Assessmt Each 15 Min Initial Assessment 26445 11/02 SANDOR PINTO [facility] Modalities Heat Hot Packs Modalities Heat Hot Packs 32353 11/01 CANDIDO MEAD [facility] Traction Cervical Traction Cervical 39150 11/01 CANDIDO MEAD [facility] Modalities Heat Hot Packs Modalities Heat Hot Packs 26115 10/28 LEONILA BUNNY [place] [facility] Traction Cervical Traction Cervical 22605 10/28 LEONILA [facility] Traction Cervical Traction Cervical 65891 10/25 LEONILA [facility] Physical Therapy: ___ Se ion Segments, 15 Minutes Each Physical Therapy: ___ Session Segments, 15 Minutes Each 19985 10/25 LEONILA BUNNY [facility] Physical Therapy: ___ Se ion Segments, 15 Minutes Each Physical Therapy: ___ Session Segments, 15 Minutes Each 79446 10/23 LEONILA BUNNY [facility] Traction Cervical Traction Cervical 31130 10/23 LEONILA [facility] Traction Cervical Traction Cervical 62206 10/18 CANDIDO MEAD [facility] Traction Cervical Traction Cervical 97598 10/15 LEONILA BUNNY [facility] Physical Therapy: ___ Se ion Segments, 15 Minutes Each Physical Therapy: ___ Session Segments, 15 Minutes Each 76229 10/15 LEONILA BUNNY [place] [facility] Traction Cervical Traction Cervical 74158 10/09 ISSAC TEIXEIRA [facility] Physical Therapy: ___ Se ion Segments, 15 Minutes Each Physical Therapy: ___ Session Segments, 15 Minutes Each 73069 10/09 PUNEETISSAC Frances [facility] Threshold Audiogram (Pure Tone) Automated Threshold Audiogram (Pure Tone) Automated 0208T 10/04 ASHLEY ORLANDO [facility] Health And Behav A e mt Each 15 Min Initial A e ment Health And Behav Assessmt Each 15 Min Initial Assessment 30977 06/24 SANDOR PINTO [facility] Threshold Audiogram (Pure Tone) Threshold Audiogram (Pure Tone) 67904 06/23 HERB BRENNAN [facility] Threshold Audiogram (Pure Tone) Threshold Audiogram (Pure Tone) 22882 09/23 ANTONY SYLVESTER Kelly [facility] Determination Of Refractive State Determination Of Refractive State 97927 12/23 SHELBY ECHEVARRIA Ophthalmological New Patient Start Comprehensive Care Ophthalmological New Patient Start Comprehensive Care 40747 12/23 SHELBY ECHEVARRIA Physical Therapy: ___ Se ion Segments, 15 Minutes Each Physical Therapy: ___ Session Segments, 15 Minutes Each 87805 08/21 ZIYAD LANTIGUA PT [facility] Physical Medicine Physical Therapy Evaluation Physical Medicine Physical Therapy Evaluation 29097 08/21 ZIYAD LANTIGUA PT [facility] Psychiatric Evaluation Review of Records and Reports Psychiatric Evaluation Review of Records and Reports 00657 03/05 SOHAIL CHANDLER Psychiatric Evaluation Review of Records and Reports Psychiatric Evaluation Review of Records and Reports 27623 02/04 CLAUDIA ROBLES Modalities Heat Hot Packs Modalities Heat Hot Packs 32255 10/16 ISABELLE ISABEL Modalities Electrical Stimulation Unattended Modalities Electrical Stimulation Unattended 26368 10/16 ISABELLE ISABEL Chiropractic Manip Treatmt (CMT) Spinal One To Two Regions Chiropractic Manip Treatmt (CMT) Spinal One To Two Regions 17447 10/16 IASBELLE ISABEL Modalities Electrical Stimulation Unattended Modalities Electrical Stimulation Unattended 26433 08/27 ISABELLE ISABEL Modalities Heat Hot Packs Modalities Heat Hot Packs 09174 08/27 ISABELLE ISABEL Chiropractic Manip Treatmt (CMT) Spinal One To Two Regions Chiropractic Manip Treatmt (CMT) Spinal One To Two Regions 05620 08/27 ISABELLE ISABEL Modalities Electrical Stimulation Unattended Modalities Electrical Stimulation Unattended 75909 08/15 ISABELLE ISABEL Modalities Heat Hot Packs Modalities Heat Hot Packs 54487 08/15 ISABELLE ISABEL Chiropractic Manip Treatmt (CMT) Spinal One To Two Regions Chiropractic Manip Treatmt (CMT) Spinal One To Two Regions 02451 08/15 IASBELLE ISABEL [facility] Non-Physician Phone Call To Patient/Provider Brief (5-10min) Non-Physician Phone Call To Patient/Provider Brief (5-10min) 56528 CARLO YBARRA [facility] Internet Med Svc Qual Nonphys Healthcare Prof Estab Patient Internet Med Svc Qual Nonphys Healthcare Prof Estab Patient 24275 ARVIND CASSIDY [facility] Ophthalmological New Patient Start Comprehensive Care Ophthalmological New Patient Start Comprehensive Care 81076 PABLO CLANCY [facility] Determination Of Refractive State Determination Of Refractive State 50312 PABLO CLANCY [facility] Chiropractic Manip Treatmt (CMT) Spinal Three To Four Region Chiropractic Manip Treatmt (CMT) Spinal Three To Four Region 45987 BRYSON MARCANO AT - Diversified supine adjustment to C/S, A-P T/S, Diversified side posture to SI and L/S DoD Exercises A isted Exercises For ROM Exercises Assisted Exercises For ROM 04221 BRYSON MARCANO End range loading of cervical spine in sitting, retraction and extension shown and observed 10 minutes. DoD Chiropractic Manip Treatmt (CMT) Spinal Three To Four Region Chiropractic Manip Treatmt (CMT) Spinal Three To Four Region 20463 BRYSON MARCANO AT - Diversified supine adjustments supine to C/S , prone T/S , side posture to SI and L/S DoD Chiropractic Manip Treatmt (CMT) Spinal Three To Four Region Chiropractic Manip Treatmt (CMT) Spinal Three To Four Region 19855 BRYSON MARCANO Diversified supine adjustments supine to C/S , prone T/S , side posture to SI and L/S, (AT) DoD Modalities Heat Hot Packs Modalities Heat Hot Packs 12476 BRYSON MARCANO Moist heat for 20min to hypertonic cervicothoracic erectors bilaterally DoD Modalities Electrical Stimulation Unattended Modalities Electrical Stimulation Unattended 28305 BRYSON MARCANO Interferential 80-150hz with Moist heat for 20min to hypertonic cervicothoracic erectors bilaterally DoD Chiropractic Manip Treatmt (CMT) Spinal Three To Four Region Chiropractic Manip Treatmt (CMT) Spinal Three To Four Region 86738 BRYSON MARCANO Diversified supine adjustments supine to C/S , prone T/S , side posture to SI and L/S (AT) DoD Acupunct One Or More Stafford W/O Stimulation Initial 15 Min Acupunct One Or More Stafford W/O Stimulation Initial 15 Min 70083 BRYSON MARCANO Patient received dry needling therapy education handout and acknowledged understanding of risks and benefits of dry needling therapy prior to receiving treatment. Patient voiced understanding of treatment options and elected to proceed with dry needling therapy. Discussed/receiv ed consent. Performed: TDN (soft tissue mobilization x 15 min). Patient was placed on the table prone. The following areas were palpated and tender points located in the following locations: Trapezius (BL41, BL42, BL43, BL44, BL45, BL46, BL47, M-BW-1), Rhomboid major (BL14), Rhomboid minor (BL11), Thoracic erectors (BL11, BL12, BL13, BL14, BL15, BL16, BL17, BL18, BL19, BL20, BL21), Lumbar erectors (BL22, BL23, BL24, BL25) These areas were cleansed thoroughly with alcohol swab. A TDN needle was inserted in each tender point. Pt tolerated the procedure well. EBL 0. Pt left in stable condition. S/Sx of infection, home care, and f/u instructions given to patient after treatment DoD Modalities Heat Hot Packs Modalities Heat Hot Packs 73934 BRYSON MARCANO Moist heat for 20min to hypertonic thoracic erectors bilaterally DoD Chiropractic Manip Treatmt (CMT) Spinal Three To Four Region Chiropractic Manip Treatmt (CMT) Spinal Three To Four Region 63150 BRYSON MARCANO Diversified supine adjustments prone T/S , side posture to SI and L/S, (AT) DoD Acupunct One Or More Stafford W/O Stimulation Initial 15 Min Acupunct One Or More [place] W/O Stimulation Initial 15 Min 77818 BRYSON MARCANO Patient received dry needling therapy education handout and acknowledged understanding of risks and benefits of dry needling therapy prior to receiving treatment. Patient voiced understanding of treatment options and elected to proceed with dry needling therapy. Discussed/receiv ed consent. Performed: TDN (soft tissue mobilization x 15 min). Patient was placed on the table prone. The following areas were palpated and tender points located in the following locations: Trapezius (BL41, BL42, BL43, BL44, BL45, BL46, BL47, M-BW-1), Levator scapula (M-HN30), Rhomboid major (BL14), Rhomboid minor (BL11), Thoracic erectors (BL11, BL12, BL13, BL14, BL15, BL16, BL17, BL18, BL19, BL20, BL21) These areas were cleansed thoroughly with alcohol swab. A TDN needle was inserted in each tender point. Pt tolerated the procedure well. EBL 0. Pt left in stable condition. S/Sx of infection, home care, and f/u instructions given to patient after treatment DoD Acupunct One Or More Stafford W/O Stimulation Initial 15 Min Acupunct One Or More Stafford W/O Stimulation Initial 15 Min 42183 BRYSON MARCANO Patient received dry needling therapy education handout and acknowledged understanding of risks and benefits of dry needling therapy prior to receiving treatment. Patient voiced understanding of treatment options and elected to proceed with dry needling therapy. Discussed/receiv ed consent. Performed: TDN (soft tissue mobilization x 15 min). Patient was placed on the table prone. The following areas were palpated and tender points located in the following locations: Rhomboid major (BL14), Rhomboid minor (BL11), Thoracic erectors (BL11, BL12, BL13, BL14, BL15, BL16, BL17, BL18, BL19, BL20, BL21), Lumbar erectors (BL22, BL23, BL24, BL25) These areas were cleansed thoroughly with alcohol swab. A TDN needle was inserted in each tender point. Pt tolerated the procedure well. EBL 0. Pt left in stable condition. S/Sx of infection, home care, and f/u instructions given to patient after treatment DoD Modalities Heat Hot Packs Modalities Heat Hot Packs 59334 BRYOSN MARCANO Moist heat for 20min to hypertonic lumbar erectors bilaterally DoD Physical Therapy Ma age Physical Therapy Massage 95953 BRYSON MARCANO Hyper volt applied to the B/L trapezium, levator scapulae, rhomboid minor and major and supremely. ( 8 minutes) DoD Modalities Electrical Stimulation Unattended Modalities Electrical Stimulation Unattended 30634 RONYYEHUDABRYSON Rohith Interferential 80-150hz with Moist heat for 20min to hypertonic thoracic erectors bilaterally DoD Physical Therapy Ma age Physical Therapy Massage 21176 BRYSON MARCANO Hypervolt massage to trapezius, thoracic erectors, and rhomboids (10 minutes) DoD Brief communication technology-based service, e.g. virtual check-in, by a physician or other qualified health care profe shamar who can report evaluation and management services, provided to an established patient, not originating from a related E/M service provided within the previous 7 days nor leading to an E/M service or procedure within the next 24 hours or soonest available appointment; 5-10 minutes of medical discu ion CAROLYNE ZAMUDIO DoD Waiver services; not otherwise specified (NOS) REBECCA TOWNSEND DoD Exercises A isted Exercises For ROM Exercises Assisted Exercises For ROM 11930 LILY LEARY Physical Medicine Physical Therapy Re-Evaluation Physical Medicine Physical Therapy Re-Evaluation [id number] LILY LEARY Physical Therapy: ___ Se ion Segments, 15 Minutes Each Physical Therapy: ___ Session Segments, 15 Minutes Each [id number] MAO HENAO Taping Knee Taping Knee 14338 MAO HENAO Exercises A isted Exercises For ROM Exercises Assisted Exercises For ROM 75550 BRYSON MARCANO Rohith Patient asked to perform and demonstrated allyson extension in lying (10min) DoD Mobilization Soft Ti ue Mobilization Soft Tissue 09461 RONYYEHUDABRYSON Rohith Soft tissue mobilization performed on patient's right levator scapulae and upper trap utilizing pin and stretch, and hypervolt (10 min) DoD Exercises A isted Exercises For ROM Exercises Assisted Exercises For ROM 82772 RONYYEHUDABRYSON Rohith Patient asked to perform and demonstrated allyson cervical retractions seated (10min) DoD Chiropractic Manip Treatmt (CMT) Spinal Three To Four Region Chiropractic Manip Treatmt (CMT) Spinal Three To Four Region 95233 BRYSON MARCANO /Diversified supine adjustments supine to C/S , prone T/S , side posture to SI and L/S, (AT) DoD Modalities Heat Hot Packs Modalities Heat Hot Packs 39196 BRYSON MARCANO /Moist heat for 20min to hypertonic cervicothoracic, thoracic erectors bilaterally DoD Modalities Electrical Stimulation Unattended Modalities Electrical Stimulation Unattended 28942 BRYSON MARCANO /Interferential 80-150hz with Moist heat for 20min to hypertonic cervicothoracic, thoracic erectors bilaterally DoD Chiropractic Manip Treatmt (CMT) Spinal Three To Four Region Chiropractic Manip Treatmt (CMT) Spinal Three To Four Region 21496 BRYSON MARCANO Diversified supine adjustments supine to C/S , anterior to posterior to T/S , side posture to SI and L/S, (AT) DoD Physical Therapy Ma age Physical Therapy Massage 93374 BRYSON MARCANO ART of the left rhomboid and hypervolt of upper traps DoD Threshold Audiogram (Pure Tone) Automated Threshold Audiogram (Pure Tone) Automated 0208T SHANA SALAS DoD Chiropractic Manip Treatmt (CMT) Spinal Three To Four Region Chiropractic Manip Treatmt (CMT) Spinal Three To Four Region 45817 BRYSON MARCANO Diversified supine adjustments prone C/S , prone T/S , side posture to SI and L/S, (AT) DoD Exercises A isted Exercises For ROM Exercises Assisted Exercises For ROM 81977 BRYSON MARCANO Breathing Exercises: patient is supine, legs are up with one hand on chest other hand on abdomen. Breath in through the nose engaging the diaphragm and filling the abdominal canister without engaging intercostals or lifting the ribs (10min) DoD Chiropractic Manip Treatmt (CMT) Spinal Three To Four Region Chiropractic Manip Treatmt (CMT) Spinal Three To Four Region 29859 RONYSEATTLEBRYSON AT - Diversified supine adjustments supine to C/S , anterior to posterior to T/S , side posture to SI and L/S DoD Chiropractic Manip Treatmt (CMT) Spinal Three To Four Region Chiropractic Manip Treatmt (CMT) Spinal Three To Four Region [facility] BRYSON MARCANO Diversified supine adjustments supine to C/S , anterior to posterior to T/S , side posture to SI and L/S DoD Modalities Electrical Stimulation Unattended Modalities Electrical Stimulation Unattended 72389 BRYSON MARCANO Interferential 80-150hz with Moist heat for 20min to hypertonic thoracolumbar erectors bilaterally DoD Modalities Heat Hot Packs Modalities Heat Hot Packs 10568 BRYSON MARCANO Moist heat for 20min to hypertonic thoracolumbar erectors bilaterally DoD Physical Therapy Ma age Physical Therapy Massage 73233 BRYSON MARCANO b/l Ischaemic compression of the trigger points in the trapezius. 8 minutes. DoD Chiropractic Manip Treatmt (CMT) Spinal Three To Four Region Chiropractic Manip Treatmt (CMT) Spinal Three To Four Region 85097 BRYSON MARCANO Diversified supine adjustment to C/S, A-P prone T/S, Diversified side posture to SI and L/S DoD Chiropractic Manip Treatmt (CMT) Spinal Three To Four Region Chiropractic Manip Treatmt (CMT) Spinal Three To Four Region 45256 BRYSON MARCANO Diversified supine adjustments supine to C/S , prone T/S , side posture to SI and L/S DoD Chiropractic Manip Treatmt (CMT) Spinal Three To Four Region Chiropractic Manip Treatmt (CMT) Spinal Three To Four Region 52985 BRYSON MARCANO Diversified supine adjustments supine to C/S , anterior to posterior to T/S , si DoD Modalities Traction Manual (Each Region 15 Minutes) Modalities Traction Manual (Each Region 15 Minutes) 88900 MAO OZUNA 59 - Performed attended, prone, Cotton Flexion/Distract ion to lumbar spine (15min) DoD Modalities Traction Manual (Each Region 15 Minutes) Modalities Traction Manual (Each Region 15 Minutes) 42241 KRYS BRYSON Rohith 59 - Performed attended, prone, Cotton Flexion/Distract ion to cervical spine 59 - Performed attended, prone, Cotton Flexion/Distract ion to lumbar spine DoD Modalities Electrical Stimulation Unattended Modalities Electrical Stimulation Unattended 89548 BRYSON MARCANO Rohith Interferential 80-150hz 20min to hypertonic cervicothoracic erectors bilaterally DoD Modalities Electrical Stimulation Unattended Modalities Electrical Stimulation Unattended 91224 RONYYEHUDA BRYSON Rohith Interferential 80-150hz to hypertonic thoracolumbar erectors bilaterally DoD Non-Physician Phone Call To Pt/Provider Intermed (11-20 min) Non-Physician Phone Call To Pt/Provider Intermed (11-20 min) 72263 SYLVESTER SALGUERO DoD Health And Behav A e mt Each 15 Min Initial A e ment Health And Behav Assessmt Each 15 Min Initial Assessment 70141 HEMA GONZALEZ DoD Health And Behav A e mt Each 15 Min Purlear e ment Health And Behav Assessmt Each 15 Min Reassessment 88525 HEMA GONZALEZ [facility] Social History Combined list of available smoking, tobacco, and other social history from Department of Defense and Veterans Affairs facilities. Social History Type Response Date Comment Sourc e Tobacco smoking status NHIS VA-TOBACCO USE FORMER CIGARETTES 08/20/2024 [facility] History of tobacco use VA-TOBACCO USE FORMER OTHER TYPE 08/20/2024 stopped vaping May 2023 [facility] History of tobacco use VA-TOBACCO FORMER USER 09/19/2023 [facility] Sex Representation Male (finding) 09/25/2022 Un known Organization History of tobacco use VA-TOBACCO USER EVERY DAY 07/18/2022 [facility] Tobacco Cigarette use: Never-cigarette user. Other Tobacco use: Never-other tobacco user (not cigarettes). Ambulatory Pharmacy Sexual Orientation Ambula tory Pharmacy Gender identity Ambulator y Pharmacy This section is an empty social history section. [facility] Assessment and Plan Combined list of future care activities from Department of Defense and Veterans Affairs facilities (e.g., assessment and plan notes, appointments, orders, and referrals). Additional future care activities may be listed in the Plan of Care section. Result Assessment and Plan Date Source Assessment and Plan Extracted from:Title : 0055 BCC right shoulder pain/bilateral thumb pain Author: JANI BURGESS NP Date: 12/26/23 1. R ight shoulder pain 38 yo male c/o r ight shoulder pain x 1 months s/p playing catch with son. P ain is located to anterior shoulder. Denies recent trauma. Pain c onstant 2/10, with movement 6/10. Has not trialed any OTC meds at home. Leticia cardona reports some catching when bringing his arm down from flexion. He is not interested in physical therapy at this time and will complete the exercises given from handout. PE remarkable for pain at 90 degrees flexion, abduction. +shawna Siddiqui.? N eurovascular intact. L ikely rotator cuff injury vs impingement. - XR right shoulder - Prescribed NSAID for pain a nd inflammation. - Recommended strength/stretch exercises. HEP provided. - Recommended against exercising through pain, but may exercise otherwise - consider Physical therapy for additional stretching and strengthening techniques - Pt to f/u P RN if no improvement - I f no improvement, will c onsider additional imaging, s teroid injection, and/or Ortho consult Ordered: meloxicam(meloxicam 15 mg oral tablet), 1 tab(s), Oral, Daily, # 30 tab(s), 0 total refill(s), Maintenance, 1 tab(s) Oral Daily, Pharmacy: [facility] 2. P ain in unspecified finger(s) Bilateral thumb pain with associated weakness/paresthesias. He reports having to drop items d/t pain in hands. 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 PE remarkable for +Phalen, Tinel's. Likely carpal tunnel. - nocturnal splinting--wrist splints given - educational handout on carpal tunnel syndrome given. - consider future referral to ortho for steroid injections - consider PO corticosteroid burst if preferred over injections - follow-up in 1 month if not improved Orders: XR Shoulder Complete 2+ Views Right 12/28/2024 [id number] List of future care activities from Department of Veterans Affairs facilities. Additional future care activities may be listed in the Assessment and Plan section. Date/Time Care Activity Care Activity Detail Facili ty 05/19/2025 AMBULATORY - MEDICINE AMBULATORY - MEDICI [facility] Functional Status Combined list of recent functional and cognitive assessments recorded at Department of Defense and Veterans Affairs (VA).VA Functional [place] Measurement (FIM) Scale: 1 = Total Assistance (Subject = 0% +), 2 = Maximal Assistance (Subject = 25% +), 3 = Moderate Assistance (Subject = 50% +), 4 = Minimal Assistance (Subject = 75% +), 5 = Supervision, 6 = Modified [place] (Device), 7 = Complete [place] (Timely, Safely). Assessment Date/Time Source Assessment Type Assessment Skill Assessment Score Assessment Details No data available for this section
--- OUTSIDE RECORDS SUMMARY | 2024-12-28 13:09 | XMS_ITS ---
Author Organization [facility] [facility] ([address]) Address [address] [address] Care Team Providers Care Long Goods Drier Name Role Phone Bandar Amandeep Primary Care Provider Unavailab le Meggan Schmidt Unavailable [phone] Z[facility]-Migration, Provider Unavailable Unavailab le REASON FOR VISIT [facility] To [facility] Conversion Encounter Medications Medication SIG (Take, Route, Frequency, Duration) Notes Start Date End Date Status Famotidine 40 MG 1 tab(s) orally 30 m in prior to allergy shots; Duration: 90 days Active ZyrTEC Allergy 10 MG 1 tab(s) orally once a day; Duration: 90 days Active EpiPen 2-Lucio 0.3 MG/0.3ML as directed intramuscularly once; Duration: 30 day(s) Active Flonase Allergy Relief 50 MCG/ACT 2 spray(s) intranasally (avoid nasal septum) once a day; Duration: 90 days Active Cetirizine HCl 10 MG 1 tab(s) orally BID, PRN; Duration: 90 days Active VANICREAM MOISTURIZING CREAM N/A NECESSARY APPLY TO EXTERNAL SURFACES OFTEN NEEDED TO FACE, HANDS, FEET OR BODY FOR DAILY USE; Duration: 30 DAY(S) *Please review for potential replacement for e-prescription and drug interaction check* 07/11/2022 Active Vanicream - 1 kori applied topically once a day; Duration: 30 days Active Singulair 10 MG 1 tab(s) orally once a day; Duration: 90 days Active Pepcid 40 MG 1 tab(s) orally BID; Duration: 90 days Active Encounters Encounter Location Date Provider Diagnosis [facility] [place] [place] [address] 11/23/2023 Provider Carlos Rash and other nonspecific skin eruption R21 and Allergic rhinitis due to pollen J30.1 Assessments Encounter Date Diagnosis (ICD Code) Assessment Notes Treatment Notes Treatment Clinical Notes Section Notes 11/23/2023 Rash and other nonspecific skin eruption (ICD-10 - R21) 11/23/2023 Allergic rhinitis due to pollen (ICD-10 - J30.1) Plan Of Treatment Medication Medication Name Sig Start Date Stop Date Notes EpiPen 2-Lucio 0.3 MG/0.3ML as directed intramuscularly once; Duration: 30 day(s) Flonase Allergy Relief 50 MCG/ACT 2 spray(s) intranasally (avoid nasal septum) once a day; Duration: 90 days Cetirizine HCl 10 MG 1 tab(s) orally BID , PRN; Duration: 90 days VANICREAM MOISTURIZING CREAM N/A NECESSARY APPLY TO EXTERNAL SURFACES OFTEN NEEDED TO FACE, HANDS, FEET OR BODY FOR DAILY USE; Duration: 30 DAY(S) 07/11/2022 *Please review for potential replacement for e-prescription and drug interaction check* Vanicream - 1 kori applied topica lly once a day; Duration: 30 days Singulair 10 MG 1 tab(s) orally once a day; Duration: 90 days Pepcid 40 MG 1 tab(s) orally BID; Duration: 90 days Progress Notes * Shlomo OVIEDODOB:1985 (39 yo M)Acc No.[id number]:11/23/2023 Patient: Shlomo MAI [place] Provider: Susy Holliday :1985 A ge:38 Y S ex:Male Date:11/23/2023 Address:[facility] [address] [place], [facility] Pcp:Amandeep Portillo Subjective: * Chief Complaints: * [facility] . [facility] * Medical History: * Medications: T aking ZyrTEC Allergy 10 MG Tablet 1 tab(s) orally once a day , Taking Famotidine 40 MG Tablet 1 tab(s) orally 30 min prior to allergy shots Objective: * Vitals: Assessment: * Assessment: 1. R georges and other nonspecific skin eruption - R21 2 . A llergic rhinitis due to pollen - J30.1 Plan: * Treatment: 2. A llergic rhinitis due to pollen Continue Flonase Allergy Relief Suspension, 50 MCG/ACT, 2 spray(s), intranasally (avoid nasal septum), once a day, 90 days, 3, Refills 1; C ontinue EpiPen 2-Lucio Solution Auto-injector, 0.3 MG/0.3ML, as directed, intramuscularly, once, 30 day(s), 1, Refills PRN. 3. O thers Refill Pepcid Tablet, 40 MG, 1 tab(s), orally, BID, 90 days, 180 Tablet, Refills 0; R efill Singulair Tablet, 10 MG, 1 tab(s), orally, once a day, 90 days, 90 Tablet, Refills 0; R efill Cetirizine HCl Tablet, 10 MG, 1 tab(s), orally, BID, PRN, 90 days, 180, Refills 0; S tart VANICREAM MOISTURIZING CREAM MOISTURIZING CREAM, N/A, NECESSARY, APPLY TO EXTERNAL SURFACES OFTEN NEEDED TO FACE, HANDS, FEET OR BODY, FOR DAILY USE, 30 DAY(S), 453 GM, Refills 0, Notes to Pharmacist: *Please review for potential replacement for e-prescription and drug interaction check*. * Billing Information: * Visit Code: * Procedure Codes: * Electronic signature of Yesenia REYNOLDS-Migration on 12/28/2024 at 01:09 PM CDT Sign off status: Pending * Provider: Susy lopez Migration Date: 0 11/23/2023 Generated for Loraine manuel/Corry/Halley on: 12/28/2024 01:09 PM CDT
--- NOTE | 2024-12-28 14:07 | ED_ITS ---
HPI - Dental/Oral General Chief complaint: Dental/Oral Stated complaint: I have a few sores in my mouth Time Seen by Provider: 12/28/24 12:49 Source: patient Mode of arrival: ambulatory Limitations: no limitations History of Present Illness HPI Narrative: Patient is a 39-year-old male who presents the ED with report of sores in his mouth. Patient reports over the last 3 days, he has had painful bumps to his ri ght posterior tongue. Also reports having a lesion to his right lower gum line that has been causing him pain. He notes that he recently ate a lot of tomatoes. Denies history of similar symptoms. Denies difficulty breathing or swelling. Has not taken anything for pain. Related Data Allergies Allergy/AdvReac Type Severity Reaction Status Date / Time No Known Allergies Allergy Verified 12/28/24 12:06 Review of Systems Review of Systems: All systems reviewed & are unremarkable except as noted in HPI. All systems reviewed & are unremarkable except as noted in HPI and below Exam Narrative: GENERAL: Well appearing, well-nourished, non-toxic, in no acute distress. HEAD: Normocephalic, atraumatic. ENT: Slightly enlarged papillae to R posterior tongue. Otherwise no erythema or bleeding. No tonsillar hypertrophy or exam. No posterior pharynx erythema. Pinpoint aphthous ulcer to right lower gumline. No bleeding or drainage. No other dental caries/focal abscess/gum inflammation. No stridor or trismus. RESPIRATORY: Airway patent, respirations nonlabored CARDIOVASCULAR: Regular rate and rhythm MUSCULOSKELETAL: Moves all extremities. No gross deformities. SKIN: Warm, dry, normal color. NEURO: A&O X3. Speech clear. PSYCHIATRIC: Appropriate mood and affect. Normal interaction. Course Vital Signs Vital signs: Vital Signs Temperature 97.5 F L 12/28/24 12:03 Pulse Rate 55 L 12/28/24 12:03 Respiratory Rate 14 12/28/24 12:03 Blood Pressure 112/79 12/28/24 12:03 Pulse Oximetry 100 12/28/24 12:03 Oxygen Delivery Room Air 12/28/24 12:03 Temperature 97.5 F L 12/28/24 12:03 Pulse Rate 56 L 12/28/24 14:29 Respiratory Rate 14 12/28/24 14:29 Blood Pressure 117/79 12/28/24 14:29 Pulse Oximetry 100 12/28/24 14:29 Oxygen Delivery Room Air 12/28/24 12:03 MDM - Dental/Oral MDM Narrative Medical decision making narrative: Exam with possible aphthous ulcer. No other concerning features. No evidence of respiratory distress or airway compromise. Will prescribe magic mouthwash. Discussed dietary medications. Given return precautions. Discharged in stable condition. Medical Records Attestation: I reviewed the patient's medical records. Discharge Plan Discharge Clinical Impression: Aphthous ulcer Patient Disposition: Home Condition: Stable Instructions: Antibiotic Form, Toothache (ED), Oral Mucositis (ED) Additional Instructions: Utilize magic mouthwash as prescribed and needed. You may also try warm saltwater rinses. Recommend Tylenol/ibuprofen if needed for pain. Follow-up with your primary care doctor or dentist for further evaluation. Patient Language: Peruvian Prescriptions: New Magic Mouthwash 50 mL suspension 10 ml PO BID PRN (Reason: mouth irritation) Qty: 50 0RF Rx Instructions: Belladonna-Phenobarbital 16.2 mg-0.1037 mg-0.0194 mg/5 mL oral elixir 10 mL; Maalox Maximum Strength 400 mg-400 mg-40 mg/5 mL oral suspension 30 mL; lidocaine 2 % mucosal solution 10 mL; Per 50 mL Follow-up/Referrals: PHYSICIAN NOT ON STAFF,NONSTAFF [Primary Care Provider] - Time of Disposition: 14:10
[2024-12-28 14:29] VITALS: BP 117/79; PULSE 56; RESP 14; O2SAT 100
== END 2024-12-28 14:30 | disposition home or self-care (01) ==
PROVIDERS: Emergency Provider Physician Assistant
DX: K12.0 Recurrent oral aphthae (principal)
CPT/HCPCS: 99283